=== PATIENT | male | born 1985 | race Caucasian/White ===

== ENCOUNTER → 2022-02-06 11:13 | Outpatient (BNVA) | payer MEDICAID, SELFPAY | PROVIDERS: Visit Provider Nurse Practitioner Family | DX: M17.11 Unilateral primary osteoarthritis, right knee (principal); M25.561 Pain in right knee | CPT/HCPCS: 73560; 73565 ==

== ENCOUNTER → 2022-02-20 10:33 | Outpatient (BNVA) | payer MEDICAID, SELFPAY | PROVIDERS: Visit Provider Nurse Practitioner Family | DX: M25.511 Pain in right shoulder (principal); M25.512 Pain in left shoulder | CPT/HCPCS: 73030 ==

== ENCOUNTER 2022-03-13 10:04 | Outpatient (CLI) | payer MEDICAID, SELFPAY ==
--- NOTE | 2022-03-13 10:23 | XR_ITS ---
WS: [email or web address] Exam: XR wrist RT 2V [id number] Date/Time of Exam: 03/13/2022 10:26 AM Reason For Exam: PAIN IN RIGHT WRIST There are no fractures, soft tissue swelling, or unusual calcifications. The wrist shows normal bony alignment. There is no irregularity of the bony architecture. XR/XR wrist RT [id number] IMPRESSION: Negative right wrist.
--- NOTE | 2022-03-13 10:58 | XR_ITS ---
WS: [email or web address] Exam: XR lumbar spine 2-3V* [id number] Date/Time of Exam: 03/13/2022 11:04 AM Reason For Exam: LOW BACK PAIN No fracture or dislocation. Mild spondylosis involving L3, L4 and L5. Disc spaces are preserved. Post erior elements are intact. Partial sacralization of L5. XR/XR lumbar spine 2-3V* [id number] IMPRESSION: 1. Minimal degenerative change. No fracture or malalignment. 2. Partial sacralization of L5.
--- NOTE | 2022-03-13 10:58 | XR_ITS ---
WS: [email or web address] Exam: XR cervical spine 3V* [id number] Date/Time of Exam: 03/13/2022 11:04 AM Reason For Exam: CERVICALGIA No acute fracture or dislocation. There is straightening and reversal of the normal cervical C curve. Disc spaces are relatively well maintained. The odontoid is intact. Mild facet DJD. XR/XR cervical spine 3V* [id number] IMPRESSION: 1. No acute fracture or malalignment. There is straightening and slight reversa l of the normal cervical lordosis. Minimal DJD.
--- NOTE | 2022-03-13 10:58 | XR_ITS ---
WS: [email or web address] Exam: XR foot LT 2V [id number] Date/Time of Exam: 03/13/2022 11:04 AM Reason For Exam: PAIN No acute fracture or dislocation. No soft tissue foreign bodies are seen. Articular relationships are intact. XR/XR foot LT 2V [id number] IMPRESSION: 1. No fracture or other significant finding.
--- NOTE | 2022-03-13 10:59 | XR_ITS ---
WS: [email or web address] Exam: XR wrist LT 2V [id number] Date/Time of Exam: 03/13/2022 11:04 AM Reason For Exam: PAIN No fracture or dislocation. The radiocarpal joint is relatively well maintained. Normal soft tissues. XR/XR wrist LT 2V [id number] IMPRESSION: 1. Negative left wrist.
--- NOTE | 2022-03-13 10:59 | XR_ITS ---
WS: [email or web address] Exam: XR foot RT 2V [id number] Date/Time of Exam: 03/13/2022 11:04 AM Reason For Exam: PAIN No acute fracture or dislocation. Minimal DJD at the first MP joint. No radiopaque soft tissue foreig n bodies are seen. XR/XR foot RT 2V [id number] IMPRESSION: 1. Minimal DJD. No fracture or other significant finding.
--- NOTE | 2022-03-13 11:00 | XR_ITS ---
WS: [email or web address] Exam: XR knee RT 3V* [id number] Date/Time of Exam: 03/13/2022 11:04 AM Reason For Exam: PAIN Comparison 02/06/2022. Moderately advanced tricompartmental DJD. No acute fracture or dislocation. Probable loose joint bodi es. No joint effusion. Marked spurring of the posterior patella. XR/XR knee RT 3V* [id number] IMPRESSION: 1. Moderately advanced tricompartmental DJD. No fracture or joint effusion. 2. Probable loose joint bodies.
--- NOTE | 2022-03-13 11:00 | XR_ITS ---
WS: [email or web address] Exam: XR knee LT 3V* [id number] Date/Time of Exam: 03/13/2022 11:04 AM Reason For Exam: PAIN Comparison 02/06/2022. Moderate tricompartmental DJD noted. No fracture or dislocation. No joint effusion. Spurring of the p osterior patella. Probable loose joint bodies. XR/XR knee LT 3V* [id number] IMPRESSION: 1. Moderately advanced tricompartmental DJD. No fracture or dislocation.
== END 2022-03-13 10:05 | disposition home or self-care (01) ==
PROVIDERS: Visit Provider Nurse Practitioner Family
DX: M25.531 Pain in right wrist (principal); M54.2 Cervicalgia; R20.0 Anesthesia of skin; M54.50 Low back pain, unspecified; M79.672 Pain in left foot; M79.671 Pain in right foot; M25.561 Pain in right knee; M25.50 Pain in unspecified joint; M17.0 Bilateral primary osteoarthritis of knee; Q76.49 Other congenital malformations of spine, not associated with scoliosis
CPT/HCPCS: 72040; 72100; 73100; 73562; 73620

== ENCOUNTER → 2022-11-13 09:46 | Outpatient (BNVA) | payer MEDICAID, SELFPAY | PROVIDERS: Visit Provider Nurse Practitioner Family | DX: M17.4 Other bilateral secondary osteoarthritis of knee (principal); E66.9 Obesity, unspecified; Z68.43 Body mass index [BMI] 50.0-59.9, adult | CPT/HCPCS: 73560; 73565 ==

== ENCOUNTER 2023-08-31 07:19 | Emergency (ER) | payer MEDICAID, SELFPAY ==
--- NOTE | 2023-08-31 07:33 | XRR_ITS ---
PROCEDURE INFORMATION: Exam: XR Chest Exam date and time: 08/31/2023 8:15 AM Clinical indication: Constipation; Additional info: Abdominal pain TECHNIQUE: Imaging protocol: Radiologic exam of the chest. Views: 1 view. COMPARISON: No relevant prior studies available. FINDINGS: Lungs: Unremarkable. No consolidation. Pleural spaces: Unremarkable. No pleural effusion. No pneumothorax. Heart/Mediastinum: Unremarkable. No cardiomegaly. Bones/joints: Unremarkable. PROCEDURE INFORMATION: Exam: XR Abdomen Exam date and time: 08/31/2023 8:15 AM Age: 38 years old Clinical indication: Constipation; Additional info: Abdominal pain TECHNIQUE: Imaging protocol: Radiologic exam of the abdomen. Views: 2 Views. Upright and supine views. COMPARISON: No relevant prior studies available. FINDINGS: Gastrointestinal tract: Above average fecal loading in the ascending colon. No bowel dilation. Intraperitoneal space: Normal. No free air. Bones/joints: Assimilation left L5-S1 joint. XR/XR acute abdomen series [id number] IMPRESSION: No acute findings. IMPRESSION: Findings suggestive of constipation.
--- NOTE | 2023-08-31 07:33 | W.ED.ABDPA2 ---
HPI - Abdominal Pain General: Chief Complaint: Abdominal Pain Stated Complaint: abd pain Time Seen by Provider: 08/31/23 07:31 History of Present Illness: 38-year-old man with a history of morbid obesity who presents to the emergency room with rectal pain and difficulty defecating. He says he feels like something wants to come out but it will not. He is taken no [id number] medications. No enemas. He had no nausea or vomiting. He said he read online that this could be concerning and he needs to come to the hospital. So he did. Review of Systems Narrative: Constitutional symptoms: Negative except as documented in HPI. Skin symptoms: Negative except as documented in HPI. Eye symptoms: Negative except as documented in HPI. ENMT symptoms: Negative except as documented in HPI. Respiratory symptoms: Negative except as documented in HPI. Cardiovascular symptoms: Negative except as documented in HPI. Gastrointestinal symptoms: Negative except as documented in HPI. Genitourinary symptoms: Negative except as documented in HPI. Musculoskeletal symptoms: Negative except as documented in HPI. Neurologic symptoms: Negative except as documented in HPI. Psychiatric symptoms: Negative except as documented in HPI. Endocrine symptoms: Negative except as documented in HPI. Physical Exam Narrative: EXAM NARRATIVE: General: Alert, no acute distress. Skin: Warm, dry. Head: Normocephalic, atraumatic. Neck: Supple, trachea midline. Eye: Extraocular movements are intact. Ears, nose, mouth and throat: mucosa moist. Cardiovascular: Regular, Normal peripheral perfusion. Respiratory: Lungs are clear to auscultation, respirations are non-labored, breath sounds are equal, Symmetrical chest wall expansion. Gastrointestinal: Soft, Nontender, Non distended, Normal bowel sounds. Musculoskeletal: Normal ROM, no deformity. Neurological: Alert and oriented, No focal neurological deficit observed. Psychiatric: Cooperative, appropriate mood & affect. Course Vital Signs: Vital signs: Vital Signs Temperature 98.3 F 08/31/23 07:34 Pulse Rate 83 08/31/23 08:34 Respiratory Rate 18 08/31/23 07:34 Blood Pressure 139/97 08/31/23 08:34 Pulse Oximetry 96 08/31/23 08:34 Oxygen Delivery Me thod Room Air 08/31/23 08:34 MDM - Abdominal Pain Medical Decision Making Medical decision making: Differential diagnosis including but not limited to and based on the above HPI, review of systems and physical exam: Fecal impaction, constipation. Orders to evaluate differential diagnosis: Basic lab work and an acute abdominal series ordered initially. Lab Review: Laboratory results were reviewed and interpreted by myself the emergency room physician. Acute abdominal series: chest x-ray: No acute process. No obvious infiltrates. No pneumothorax. No cardiomegaly. This was reviewed and interpreted by myself the emergency room physician Abdomen x-ray: Increased stool burden particularly in the ascending colon. Nonspecific bowel gas pattern. No evidence of free air or obstruction. This was reviewed and interpreted by myself the emergency room physician. Reexamination: Patient had what sounded like an extremely painful bowel movement. He says he now feels quite a bit better. No focal abdominal tenderness. No increased work of breathing. No altered mental status. Lab Data 08/31/23 09:15 08/31/23 09:15 Labs/Radiology: Radiology Impressions Chest/Abdomen X-ray 08/31/23 07:33 IMPRESSION: No acute findings. IMPRESSION: Findings suggestive of constipation. Laboratory Results WBC 7.76 10^3/uL (3.29-11.43) 08/31/23 09:15 RBC 4.57 10^6/uL (3.85-5.65) 08/31/23 09:15 Hgb 13.30 g/dL (11.27-16.99) 08/31/23 09:15 Hct 40.7 % (37-53) 08/31/23 09:15 MCV 89.1 fl (82-101) 08/31/23 09:15 MCH 29.1 pg (27-33) 08/31/23 09:15 MCHC 32.7 g/dL (30-55) 08/31/23 09:15 RDW 12.7 % (12.1-15.1) 08/31/23 09:15 Plt Count 194 10^3/cmm (157-399) 08/31/23 09:15 MPV 9.6 fL (7.4-10.4) 08/31/23 09:15 Neut % (Auto) 70.1 % 08/31/23 09:15 Lymph % (Auto) 19.3 % 08/31/23 09:15 [place] % (Auto) 6.3 % 08/31/23 09:15 Eos % (Auto) 3.2 % 08/31/23 09:15 Baso % (Auto) 0.6 % 08/31/23 09:15 Neut # (Auto) 5.43 10^3/uL (1.8-7.7) 08/31/23 09:15 Lymph # (Auto) 1.5 10^3/uL (0.8-4.8) 08/31/23 09:15 [place] # (Auto) 0.5 10^3/uL (0.2-0.9) 08/31/23 09:15 Eos # (Auto) 0.3 10^3/uL (0.0-0.8) 08/31/23 09:15 Baso # (Auto) 0.1 10^3/uL (0.0-0.1) 08/31/23 09:15 Nucleated RBC % (auto) 0 % 08/31/23 09:15 Nucleated RBCs # 0.0 /100WBC 08/31/23 09:15 XR interpretation done by ED provider, pending radiology final review Other Data - Patient had a bowel movement and feels quite a bit better. I will treat him for constipation at home. - Discharged home - Discussed findings and plan with patient. Answered any questions. - All laboratory values were reviewed and interpreted personally by myself, the ER physician - All imaging was reviewed and interpreted personally by myself, the ER physician. - Evaluation and treatment of this problem were appropriate in the emergency setting Discharge Plan Discharge Patient Disposition: Home Clinical Impression: Constipation Condition: Stable Prescriptions: New polyethylene glycol 3350 [Miralax] 17 gram/dose powder 17 g PO DAILY Qty: 510 0RF Rx Instructions: Take 1-2 scoops daily for the next 3 months to keep stools soft magnesium citrate Solution 296 ml PO ONCE Qty: 296 0RF glycerin (adult) Suppository 1 supp [place] DAILY PRN (Reason: constipation) Qty: 12 0RF ondansetron 8 mg tablet,disintegrating 8 mg PO .q6 PRN (Reason: nausea and vomiting) Qty: 14 0RF diclofenac potassium 50 mg tablet 50 mg PO BID PRN (Reason: pain) Qty: 20 0RF Discharge Orders: Discharge ED (Routine); Ordered 08/31/23 Ordered By: Griselda Quiroga Referrals: Primary, provider [Other] (You have been screened and evaluated and felt safe for discharge. Health conditions do change or evolve sometimes and as such it is important that you follow up with your Primary Doctor to be re checked, 3-5 days is a general good time frame for follow up. You are always welcome to return to the ED for re assessment if your symptoms are worsening or you have new concerns) Discharge Diet: Advance as tolerated Discharge Activity: Resume usual activity Patient Instructions: Opioid Safety, Pain Management, Constipation (ED) Coding Level of Care Code ED Manager Call Center for Linn Rai
[2023-08-31 07:34] VITALS: BP 173/117; PULSE 86; RESP 18; TEMP 36.8; O2SAT 98
[2023-08-31] MEDS: ketorolac 60 mg/2 mL INJ IM (08:31)
[2023-08-31] MEDS: ondansetron 2 mg/ML SDV 2 mL 4 MG IVP (08:32)
[2023-08-31 08:34] VITALS: BP 139/97; PULSE 83; O2SAT 96
[2023-08-31 09:22] LABS: Basophils # 0.1 10^3/uL (0.0-0.1); Basophils % 0.6 %; Eosinophils # 0.3 10^3/uL (0.0-0.8); Eosinophils % 3.2 %; Hematocrit 40.7 % (37-53); Lymphocytes # 1.5 10^3/uL (0.8-4.8); Lymphocytes % 19.3 %; Mean Corpuscular HGB Conc 32.7 g/dL (30-55); Mean Corpuscular Hemoglobin 29.1 pg (27-33); Mean Corpuscular Volume 89.1 fl (82-101); Mean Platelet Volume 9.6 fL (7.4-10.4); Monocytes # 0.5 10^3/uL (0.2-0.9); Monocytes % 6.3 %; Neutrophils # 5.43 10^3/uL (1.8-7.7); Neutrophils % 70.1 %; Nucleated Red Blood Cells % 0 %; Platelet Count 194 10^3/cmm (157-399); Red Blood Count 4.57 10^6/uL (3.85-5.65); Red Cell Distribution Width 12.7 % (12.1-15.1); White Blood Count 7.76 10^3/uL (3.29-11.43)
[2023-08-31 09:40] LABS: Anion Gap 12.2 (5-19); Blood Urea Nitrogen 13 mg/dL (6-20); Calcium 8.5 mg/dL (8.5-10.5); Carbon Dioxide 28 mmol/L (22-29); Chloride 102 mmol/L (98-107); Glomerular Filtration Rate 126.2 mL/min (90-130); Glucose 98 mg/dL (65-115); Osmolality Calculated 286 mOsm/kg (285-295); Potassium 4.2 mmol/L (3.5-5.1); Sodium 138 mmol/L (136-145)
[2023-08-31 09:52] VITALS: PULSE 74; O2SAT 92
== END 2023-08-31 09:54 | disposition home or self-care (01) ==
PROVIDERS: Emergency Provider Emergency Medicine
DX: K59.00 Constipation, unspecified (principal)
CPT/HCPCS: 36415; 74022; 80048; 85025; 96372; 96374; 96375; 99284; J1885; J2405

== ENCOUNTER 2023-09-09 11:32 | Emergency (ER) | payer MEDICAID, SELFPAY ==
[2023-09-09] VITALS (9 sets, daily range): BP systolic 138–174; BP diastolic 67–119; PULSE 66–83; TEMP 36.8; O2SAT 90–97; BMI 57.4
--- NOTE | 2023-09-09 11:40 | ECG_ITS ---
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 Measurements Intervals [place] Rate: 66 P: 56 [place]: 177 QRS: 44 QRSD: 113 T: 64 QT: 367 QTc: 386 Interpretive Statements SINUS RHYTHM WITH SINUS ARRHYTHMIA MODERATE INTRAVENTRICULAR CONDUCTION DELAY [110+ ms QRS DURATION] NONSPECIFIC T-WAVE ABNORMALITY No previous ECG available for comparison Electronically Signed On 09-10-2023 0:37:40 TELEVISION ENGINEERING TEACHER by Marianne Santiago M.D. [id number]
--- NOTE | 2023-09-09 11:51 | XR_ITS ---
WS: [email or web address] Exam: XR sternum min 2V [id number] Date/Time of Exam: 09/09/2023 12:01 PM Reason For Exam: trauma No obvious sternal fracture or dislocation. Anterior soft tissues are unremarkable. IMPRESSION: 1. No acute sternal fracture.
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
[2023-09-09 11:57] LABS: Basophils % 0.6 %; Eosinophils # 0.3 10^3/uL (0.0-0.8); Eosinophils % 4.6 %; Hematocrit 40.1 % (37-53); Lymphocytes # 2.2 10^3/uL (0.8-4.8); Lymphocytes % 30.5 %; Mean Corpuscular HGB Conc 33.2 g/dL (30-55); Mean Corpuscular Volume 87.6 fl (82-101); Mean Platelet Volume 9.7 fL (7.4-10.4); Monocytes # 0.5 10^3/uL (0.2-0.9); Monocytes % 6.9 %; Neutrophils # 4.07 10^3/uL (1.8-7.7); Neutrophils % 57.1 %; Nucleated Red Blood Cells % 0 %; Platelet Count 197 10^3/cmm (157-399); Red Blood Count 4.58 10^6/uL (3.85-5.65); Red Cell Distribution Width 12.8 % (12.1-15.1); White Blood Count 7.12 10^3/uL (3.29-11.43)
[2023-09-09 12:14] LABS: Add Urine Microscopic? NO; Charge for UA Resulting for Rev
[2023-09-09 12:22] LABS: Bilirubin Urine Neg (Negative); Blood Urine Neg (Negative); Glucose Urine UA Norm (Normal); Ketones Urine Negative (Negative); Leukocyte Esterase Urine Negative (Negative); Nitrate Urine Negative (Negative); Protein Urine Neg (Negative); Specific Gravity, Urine 1.005 (1.005-1.030); Urine Appearance Clear (CLEAR); Urine Color Yellow (Yellow); Urobilinogen Urine Norm (Negative); pH Urine 5 (5-7)
[2023-09-09 12:27] LABS: Albumin Level 3.9 g/dL (3.5-5.2); Alkaline Phosphatase 97 U/L (40-130); Anion Gap 12.9 (5-19); Aspartate Amino Transferase 37 U/L (0-40); Blood Urea Nitrogen 12 mg/dL (6-20); Calcium 8.7 mg/dL (8.5-10.5); Carbon Dioxide 27 mmol/L (22-29); Chloride 100 mmol/L (98-107); Creatinine Clr Calc Pharmacy 206.0804; Globulin 3.3 g/dL (1.3-4.6); Glomerular Filtration Rate 108.2 mL/min (90-130); Glucose 109 mg/dL (65-115); Lipase 27 U/L (13-60); Osmolality Calculated 282 mOsm/kg (285-295); Potassium 3.9 mmol/L (3.5-5.1); Sodium 136 mmol/L (136-145); Total Bilirubin 0.3 mg/dL (0.15-1.2); Total Protein 7.2 g/dL (6.6-8.7)
[2023-09-09] MEDS: lidocaine 2% viscous 15 ML, aluminum-mag hydrox-simethicon 30 ML, sucralfate oral liq 1 GM PO (12:42)
[2023-09-09] MEDS: sodium chloride 0.9% 1,000 ML 999 ML IV (12:48)
[2023-09-09 12:53] LABS: Alanine Aminotransferase 14 U/L (0-41)
--- NOTE | 2023-09-09 13:55 | CT_ITS ---
WS: [id number] CT ABDOMEN AND PELVIS NONCONTRAST HISTORY: Abdominal pain TECHNIQUE: Imaging performed through the abdomen and pelvis. Coronal and sagittal reformats are submi tted. All CT scans at [facility] use at least one of these dose optimization techniques: auto mated exposure control; mA and/or kV adjustment per patient size (includes targeted exams where dose is matched to clinical indication); or iterative reconstruction. DLP: 1436.93 mGy.cm COMPARISON: None available. Lower thorax: Lung bases are clear. Visualized heart is normal. No hiatal hernia. Liver: Normal size liver. No mass or bile duct dilatation. Gallbladder: Normal gallbladder. No pericholecystic fluid or cholelithiasis. No gallbladder wall thic kening. Pancreas: Normal size and attenuation. Normal pancreatic duct. No pancreatitis or mass. Spleen: Normal. Adrenal glands: Normal. No mass. Right kidney: Normal size kidney with no mass or hydronephrosis. Left kidney: Normal size kidney with no mass or hydronephrosis. Aorta: Normal abdominal aorta, no aneurysm or atherosclerosis. No free fluid, intraperitoneal air or significant lymphadenopathy. GI tract: Normal noncontrast imaging of the stomach, small bowel and colon. No obstruction or wall th ickening. Normal appendix. Abdominal wall: Negative. No hernia. Pelvis: Normal. Osseous structures: Unremarkable. IMPRESSION: 1. Normal noncontrast CT abdomen and pelvis.
== END 2023-09-09 16:14 | disposition home or self-care (01) ==
PROVIDERS: Emergency Provider Family Medicine
DX: R10.11 Right upper quadrant pain (principal)
CPT/HCPCS: 36415; 71120; 74176; 80053; 81003; 83690; 85025; 93005; 99285; J7030

== ENCOUNTER 2023-11-18 16:16 | Emergency (ER) | payer MEDICAID, SELFPAY ==
--- NOTE | 2023-11-18 16:20 | XRR_ITS ---
PROCEDURE INFORMATION: Exam: XR Chest Exam date and time: 11/18/2023 4:43 PM Age: 38 years old Clinical indication: Other: Weakness TECHNIQUE: Imaging protocol: Radiologic exam of the chest. Views: 1 view. COMPARISON: CR XR acute abdomen series [id number] 08/31/2023 8:15 AM FINDINGS: Lungs: Unremarkable. No consolidation. Pleural spaces: Unremarkable. No pleural effusion. No pneumothorax. Heart/Mediastinum: Unremarkable. No cardiomegaly. Bones/joints: Unremarkable. XR/XR chest 1V portable [id number] IMPRESSION: No acute findings.
[2023-11-18 16:26] VITALS: BP 166/94; PULSE 77; RESP 18; TEMP 36.8; O2SAT 97; BMI 55.7
[2023-11-18 16:36] LABS: Basophils % 0.5 %; Eosinophils # 0.2 10^3/uL (0.0-0.8); Eosinophils % 2.6 %; Lymphocytes # 2.1 10^3/uL (0.8-4.8); Lymphocytes % 23.4 %; Mean Corpuscular HGB Conc 33.1 g/dL (30-55); Mean Corpuscular Hemoglobin 29.5 pg (27-33); Mean Corpuscular Volume 89.2 fl (82-101); Mean Platelet Volume 9.8 fL (7.4-10.4); Monocytes # 0.6 10^3/uL (0.2-0.9); Monocytes % 6.3 %; Neutrophils # 5.92 10^3/uL (1.8-7.7); Neutrophils % 66.7 %; Nucleated Red Blood Cells % 0 %; Platelet Count 223 10^3/cmm (157-399); Red Blood Count 4.71 10^6/uL (3.85-5.65); Red Cell Distribution Width 12.5 % (12.1-15.1); White Blood Count 8.87 10^3/uL (3.29-11.43)
--- NOTE | 2023-11-18 16:38 | ED_ITS ---
Documented by User: SANDY Fajardo 11/18/23 17:02 HPI - General Adult 2 General: Chief complaint: Dizziness Stated complaint: weakness, dizzy Time Seen by Provider: 11/18/23 16:31 Source: patient Mode of arrival: ambulatory Limitations: no limitations History of Present Illness: Patient is a 38-year-old male who presents to ED today believing he could be dehydrated. Patient states over the past 2 weeks he has had an improving URI like illness with chest congestion and productive cough. He felt like over the past 24 to 48 hours he was actually improving with this. He states this morning he began noticing dark urine and felt like he had not urinated as much as was normal for him. He states while at lunch today he began feeling woozy headed . Patient states he began drinking water and Gatorade and has since urinated approximately 3-4 times and urine is now more clear. Upon arrival to the emergency department he states I am already feeling better . Denies chest pain. No headache. Hypertensive upon arrival. He states his blood pressure is usually normal at home. Onset (ago): day(s) Severity: mild Exacerbating factors: other (fluids earlier today seemed to help) Associated symptoms: Reports cough; Deny chest pain, headache(s), malaise, nausea, rash, palpitations or vomiting Treatments prior to arrival: other (oral fluids) Review of Systems 2 Const: Denies: fever(s), chills, body aches, fatigue or malaise ENMT: Denies: throat pain, odynophagia, nasal discharge, nasal congestion or sinus pain Card: Reports: swelling of feet/ankles (chronic); Denies: chest pain, palpitations, irregular heart rhythm, orthopnea, leg pain with exertion or acrocyanosis Resp: Reports: productive cough and chest congestion; Denies: wheezing, pain on inspiration or hemoptysis GI: Denies: abdominal pain, nausea, vomiting or diarrhea : Reports: oliguria (noticed earlier today-this has improved with increasing fluid intake); Denies: flank pain, difficulty urinating or hematuria Musc: Denies: neck pain, back pain, extremity pain, extremity swelling or joint pain Skin/Breast: Denies: rash Neuro: Denies: headache(s), numbness in extremities, weakness in extremities or sensory changes Physical Exam 2 Const: COMMON NORMALS: no acute distress, patient oriented x3, no limitations and alert GENERAL APPEARANCE: cooperative NUTRITIONAL APPEARANCE: obese morbidly obese (BMI is over 55) ORIENTATION/CONSCIOUSNESS: Yes awake, Yes oriented to person, Yes oriented to place and Yes oriented to time HENMT: COMMON NORMALS: normocephalic and atraumatic HEAD & SCALP: normal to inspection, normocephalic and atraumatic FACE & SINUS: normal facial exam Chest: COMMONS NORMALS: normal inspection of the chest Resp: COMMON NORMALS: normal respiratory effort and clear to auscultation bilaterally AUSCULTATION: clear to auscultation bilaterally Cardio: COMMON NORMALS: regular rate and regular rhythm RATE: regular rate RHYTHM: regular rhythm GI: COMMON NORMALS: Normal to inspection, nondistended, normoactive bowel sounds present, Soft to palpation and non-tender PALPATION: Yes Soft to palpation : COMMON NORMALS: Yes no CVA tenderness BLADDER/KIDNEY EXAM: Yes no CVA tenderness Back/Pelvis: COMMON NORMALS: no CVA tenderness Neuro: HOLGER COMA SCALE: document GCS findings [place] coma scale eye opening: Spontaneous [place] coma scale verbal response: Orientated [place] coma scale motor response: Obey commands Holger coma scale total score: 15 COMMON NORMALS: patient oriented x3, CN's II-XII intact bilaterally, moves all extremities, no focal motor deficits, no sensory deficits noted and gait normal (patient walked back to his room unassisted w/o difficulty) S ENSORIUM/ORIENTATION: Yes alert, Yes oriented to person, Yes oriented to place and Yes oriented to time SPEECH: speech normal GAIT: Yes Normal gait present MOTOR EXAM: 5/5 motor strength present throughout Skin: COMMON NORMALS: no rashes or lesions noted GENERAL SKIN EXAM: no rashes or lesions noted Course 2 Vital Signs: Vital signs: Vital Signs Temperature 98.3 F 11/18/23 16:26 Pulse Rate 68 11/18/23 17:59 Respiratory Rate 17 11/18/23 17:59 Blood Pressure 171/99 11/18/23 17:59 Pulse Oximetry 97 11/18/23 17:59 Oxygen Delivery Me thod Room Air 11/18/23 16:26 [facility] - General Adult Lab Data 11/18/23 16:31 11/18/23 16:31 Radiology Impressions Chest X-Ray 11/18/23 16:20 IMPRESSION: No acute findings. Laboratory Results WBC 8.87 10^3/uL (3.29-11.43) 11/18/23 16: RBC 4.71 10^6/uL (3.85-5.65) 11/18/23 16:31 Hgb 13.90 g/dL (11.27-16.99) 11/18/23 16:31 Hct 42.0 % (37-53) 11/18/23 16:31 MCV 89.2 fl (82-101) 11/18/23 16:31 MCH 29.5 pg (27-33) 11/18/23 16:31 MCHC 33.1 g/dL (30-55) 11/18/23 16:31 RDW 12.5 % (12.1-15.1) 11/18/23 16:31 Plt Count 223 10^3/cmm (157-399) 11/18/23 16:31 MPV 9.8 fL (7.4-10.4) 11/18/23 16:31 Neut % (Auto) 66.7 % 11/18/23 16:31 Lymph % (Auto) 23.4 % 11/18/23 16:31 [place] % (Auto) 6.3 % 11/18/23 16:31 Eos % (Auto) 2.6 % 11/18/23 16:31 Baso % (Auto) 0.5 % 11/18/23 16:31 Neut # (Auto) 5.92 10^3/uL (1.8-7.7) 11/18/23 16:31 Lymph # (Auto) 2.1 10^3/uL (0.8-4.8) 11/18/23 16:31 [place] # (Auto) 0.6 10^3/uL (0.2-0.9) 11/18/23 16:31 Eos # (Auto) 0.2 10^3/uL (0.0-0.8) 11/18/23 16:31 Baso # (Auto) 0.0 10^3/uL (0.0-0.1) 11/18/23 16:31 Nucleated RBC % (auto) 0 % 11/18/23 16: Nucleated RBCs # 0.0 /100WBC 11/18/23 16:31 Sodium 138 mmol/L (136-145) 11/18/23 16:31 Potassium 3.8 mmol/L (3.5-5.1) 11/18/23 16:31 Chloride 101 mmol/L (98-107) 11/18/23 16:31 Carbon Dioxide 27 mmol/L (22-29) 11/18/23 16:31 Anion Gap 13.8 (5-19) 11/18/23 16:31 BUN 11 mg/dL (6-20) 11/18/23 16:31 Creatinine 0.8 mg/dL (0.7-1.2) 11/18/23 16:31 GFR Calculation 108.2 mL/min (90-130) 11/18/23 16:31 Glucose 107 mg/dL (65-115) 11/18/23 16:31 Calculated Osmolality 286 mOsm/kg (285-295) 11/18/23 16:31 Calcium 9.3 mg/dL (8.5-10.5) 11/18/23 16:31 Total Bilirubin 0.3 mg/dL (0.15-1.2) 11/18/23 16:31 AST 42 U/L (0-40) H 11/18/23 16:31 ALT 21 U/L (0-41) 11/18/23 16:31 Alkaline Phosphatase 104 U/L (40-130) 11/18/23 16:31 Total Protein 7.7 g/dL (6.6-8.7) 11/18/23 16:31 Albumin 4.0 g/dL (3.5-5.2) 11/18/23 16:31 Globulin 3.7 g/dL (1.3-4.6) 11/18/23 16:31 Discharge Plan Discharge Patient Disposition: Home Clinical Impression: Dehydration Condition: Stable Prescriptions: No Action polyethylene glycol 3350 [Miralax] 17 gram/dose powder 17 g PO DAILY Qty: 510 0RF Rx Instructions: Take 1-2 scoops daily for the next 3 months to keep stools soft glycerin (adult) Suppository 1 supp [place] DAILY PRN (Reason: constipation) Qty: 12 0RF ondansetron 8 mg tablet,disintegrating 8 mg PO .q6 PRN (Reason: nausea and vomiting) Qty: 14 0RF diclofenac potassium 50 mg tablet 50 mg PO BID PRN (Reason: pain) Qty: 20 0RF magnesium citrate Solution 296 ml PO ONCE PRN (Reason: Constipation) Discharge Orders: Discharge ED (Routine); Ordered 11/18/23 Ordered By: Yovanny Landers Referrals: Johnie Biggs, CHECKING DEPARTMENT SUPERVISOR [Primary Care Provider] - Discharge Diet: As Directed Discharge Activity: Increase activity as tolerated Patient Instructions: Dehydration (ED) Activity Restrictions/Additional Instructions: Plenty of fluids as instructed. Take your Zofran at home for nausea as needed. Follow-up with primary care and keep log of blood pressures to report. Return to the emergency department if you have any new or concerning symptoms. Sign Out Sign Out Data: Patient Sign Out occurred on 11/18/23 at 17:05. Patient's care was discussed, and care was transferred from SANDY Fajardo to SANDY Doran. Coding Level of Care Code ED Upper Cutter for Chg Fwd Documented by User: SANDY Doran 11/18/23 18:41 HPI - General Adult 2 General: Chief complaint: Dizziness Stated complaint: weakness, dizzy Time Seen by Provider: 11/18/23 16:31 Physical Exam 2 Neuro: HOLGER COMA SCALE: document GCS findings [place] coma scale total score: 15 Course 2 Vital Signs: Vital signs: Vital Signs Temperature 98.3 F 11/18/23 16:26 Pulse Rate 68 11/18/23 17:59 Respiratory Rate 17 11/18/23 17:59 Blood Pressure 171/99 11/18/23 17:59 Pulse Oximetry 97 11/18/23 17:59 Oxygen Delivery Mt thod Room Air 11/18/23 16:26 MDM - General Adult Medical Decision Making Care of patient transferred to co at shift change by SANDY Fajardo. He presented thinking he was dehydrated due to dark appearance of urine and feeling woozy around lunchtime today. On arrival he states he was feeling better after drinking Gatorade, and states he believes he was dehydrated. His EKG was unremarkable. Chest x-ray normal. CBC and CMP both unremarkable. His urinalysis was obtained, however was lost and laboratory, but patient states he is ready to go home and will follow-up with primary care if he starts having urinary symptoms. He does note that he feels 100% after the IV fluids, and has Zofran at home that he will take for any nausea. I did instruct him to keep a log of his blood pressures to report to his primary care, in which she states he is currently being worked up for his obesity which includes evaluation of his thyroid and blood pressure. He states he will do this and if he has any new or concerning signs or symptoms he will return to the emergency department. Patient discharged home. Lab Data I reviewed the patient's lab results. 11/18/23 16:31 11/18/23 16:31 Radiology Impressions Chest X-Ray 11/18/23 16:20 IMPRESSION: No acute findings. Laboratory Results WBC 8.87 10^3/uL (3.29-11.43) 11/18/23 16:31 RBC 4.71 10^6/uL (3.85-5.65) 11/18/23 16:31 Hgb 13.90 g/dL (11.27-16.99) 11/18/23 16:31 Hct 42.0 % (37-53) 11/18/23 16:31 MCV 89.2 fl (82-101) 11/18/23 16:31 MCH 29.5 pg (27-33) 11/18/23 16:31 MCHC 33.1 g/dL (30-55) 11/18/23 16:31 RDW 12.5 % (12.1-15.1) 11/18/23 16:31 Plt Count 223 10^3/cmm (157-399) 11/18/23 16:31 MPV 9.8 fL (7.4-10.4) 11/18/23 16:31 Neut % (Auto) 66.7 % 11/18/23 16:31 Lymph % (Auto) 23.4 % 11/18/23 16:31 [place] % (Auto) 6.3 % 11/18/23 16:31 Eos % (Auto) 2.6 % 11/18/23 16:31 Baso % (Auto) 0.5 % 11/18/23 16:31 Neut # (Auto) 5.92 10^3/uL (1.8-7.7) 11/18/23 16:31 Lymph # (Auto) 2.1 10^3/uL (0.8-4.8) 11/18/23 16:31 [place] # (Auto) 0.6 10^3/uL (0.2-0.9) 11/18/23 16:31 Eos # (Auto) 0.2 10^3/uL (0.0-0.8) 11/18/23 16: Baso # (Auto) 0.0 10^3/uL (0.0-0.1) 11/18/23 16: Nucleated RBC % (auto) 0 % 11/18/23 16: Nucleated RBCs # 0.0 /100WBC 11/18/23 16:31 Sodium 138 mmol/L (136-145) 11/18/23 16:31 Potassium 3.8 mmol/L (3.5-5.1) 11/18/23 16: Chloride 101 mmol/L (98-107) 11/18/23 16: Carbon Dioxide 27 mmol/L (22-29) 11/18/23 16:31 Anion Gap 13.8 (5-19) 11/18/23 16:31 BUN 11 mg/dL (6-20) 11/18/23 16:31 Creatinine 0.8 mg/dL (0.7-1.2) 11/18/23 16:31 GFR Calculation 108.2 mL/min (90-130) 11/18/23 16:31 Glucose 107 mg/dL (65-115) 11/18/23 16: Calculated Osmolality 286 mOsm/kg (285-295) 11/18/23 16:31 Calcium 9.3 mg/dL (8.5-10.5) 11/18/23 16:31 Total Bilirubin 0.3 mg/dL (0.15-1.2) 11/18/23 16:31 AST 42 U/L (0-40) H 11/18/23 16:31 ALT 21 U/L (0-41) 11/18/23 16:31 Alkaline Phosphatase 104 U/L (40-130) 11/18/23 16:31 Total Protein 7.7 g/dL (6.6-8.7) 11/18/23 16:31 Albumin 4.0 g/dL (3.5-5.2) 11/18/23 16:31 Globulin 3.7 g/dL (1.3-4.6) 11/18/23 16:31 All radiology interpretation(s) finalized by discharge Discharge Plan Discharge Patient Disposition: Home Clinical Impression: Dehydration Condition: Stable Prescriptions: No Action polyethylene glycol 3350 [Miralax] 17 gram/dose powder 17 g PO DAILY Qty: 510 0RF Rx Instructions: Take 1-2 scoops daily for the next 3 months to keep stools soft glycerin (adult) Suppository 1 supp [place] DAILY PRN (Reason: constipation) Qty: 12 0RF ondansetron 8 mg tablet,disintegrating 8 mg PO .q6 PRN (Reason: nausea and vomiting) Qty: 14 0RF diclofenac potassium 50 mg tablet 50 mg PO BID PRN (Reason: pain) Qty: 20 0RF magnesium citrate Solution 296 ml PO ONCE PRN (Reason: Constipation) Discharge Orders: Discharge ED (Routine); Ordered 11/18/23 Ordered By: Yovanny Landers Referrals: Johnie Biggs CHECKING DEPARTMENT SUPERVISOR [Primary Care Provider] - Discharge Diet: As Directed Discharge Activity: Increase activity as tolerated Patient Instructions: Dehydration (ED) Activity Restrictions/Additional Instructions: Plenty of fluids as instructed. Take your Zofran at home for nausea as needed. Follow-up with primary care and keep log of blood pressures to report. Return to the emergency department if you have any new or concerning symptoms. Sign Out Sign Out Data: Patient Sign Out occurred on 11/18/23 at 17:05. Patient's care was discussed, and care was transferred from SANDY Fajardo to SANDY Doran. Coding Level of Care Code ED Upper Cutter for Linn Rai
--- NOTE | 2023-11-18 16:40 | ECG_ITS ---
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 Measurements Intervals [place] Rate: 67 P: 65 MO: 190 QRS: 51 QRSD: 109 T: 56 QT: 379 QTc: 401 Interpretive Statements SINUS RHYTHM WITH SINUS ARRHYTHMIA Compared to ECG 09/09/2023 11:40:43 Intraventricular conduction delay no longer present T-wave abnormality no longer present Electronically Signed On 11-18-2023 23:21:33 CDT by Clifford Paul M.D. [id number]
[2023-11-18 16:53] LABS: Alanine Aminotransferase 21 U/L (0-41); Alkaline Phosphatase 104 U/L (40-130); Anion Gap 13.8 (5-19); Aspartate Amino Transferase 42 U/L (0-40); Blood Urea Nitrogen 11 mg/dL (6-20); Calcium 9.3 mg/dL (8.5-10.5); Carbon Dioxide 27 mmol/L (22-29); Chloride 101 mmol/L (98-107); Creatinine Clr Calc Pharmacy 208.5241; Globulin 3.7 g/dL (1.3-4.6); Glomerular Filtration Rate 108.2 mL/min (90-130); Glucose 107 mg/dL (65-115); Osmolality Calculated 286 mOsm/kg (285-295); Potassium 3.8 mmol/L (3.5-5.1); Sodium 138 mmol/L (136-145); Total Bilirubin 0.3 mg/dL (0.15-1.2); Total Protein 7.7 g/dL (6.6-8.7)
[2023-11-18] MEDS: sodium chloride 0.9% 1,000 ML 999 ML IV (17:12)
[2023-11-18 17:59] VITALS: BP 171/99; PULSE 68; RESP 17; O2SAT 97
[2023-11-18 20:04] LABS: Add Urine Microscopic? NO; Charge for UA Resulting for Rev
[2023-11-18 20:07] LABS: Bilirubin Urine Neg (Negative); Blood Urine Neg (Negative); Glucose Urine UA Norm (Normal); Ketones Urine Negative (Negative); Leukocyte Esterase Urine Negative (Negative); Nitrate Urine Negative (Negative); Protein Urine Neg (Negative); Specific Gravity, Urine 1.005 (1.005-1.030); Urine Appearance Clear (CLEAR); Urine Color Light yellow (Yellow); Urobilinogen Urine Norm (Negative); pH Urine 6.5 (5-7)
== END 2023-11-18 18:59 | disposition home or self-care (01) ==
PROVIDERS: Emergency Medicine; Emergency Provider Physician Assistant; PCP Clinical Nurse Specialist Adult Health
DX: E86.0 Dehydration (principal)
CPT/HCPCS: 36415; 71045; 80053; 81003; 85025; 93005; 99285; J7030

== ENCOUNTER → 2023-11-29 08:34 | Outpatient (BNVA) | payer MEDICAID, SELFPAY | PROVIDERS: PCP Family Medicine; Visit Provider Student in an Organized Health Care Education/Training Program | DX: M17.4 Other bilateral secondary osteoarthritis of knee (principal); M17.0 Bilateral primary osteoarthritis of knee | CPT/HCPCS: 73560; 73565 ==

== ENCOUNTER → 2023-12-10 08:39 | Outpatient (BNVA) | payer MEDICAID, SELFPAY | PROVIDERS: PCP Family Medicine; Referring Provider Dermatology; Visit Provider Orthopaedic Surgery | DX: M54.2 Cervicalgia (principal) | CPT/HCPCS: 72050 ==

== ENCOUNTER → 2023-12-17 12:59 | Outpatient (BNVA) | payer MEDICAID, SELFPAY | PROVIDERS: PCP Family Medicine; Visit Provider Orthopaedic Surgery | DX: M54.9 Dorsalgia, unspecified (principal) | CPT/HCPCS: 72110 ==

== ENCOUNTER 2023-12-22 12:53 | Emergency (ER) | payer MEDICAID, SELFPAY ==
--- NOTE | 2023-12-22 12:57 | ECG_ITS ---
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 Measurements Intervals [place] Rate: 75 P: 67 GA: 179 QRS: 42 QRSD: 123 T: 57 QT: 359 QTc: 402 Interpretive Statements SINUS RHYTHM MODERATE INTRAVENTRICULAR CONDUCTION DELAY [110+ ms QRS DURATION] Compared to ECG 11/18/2023 16:40:44 Intraventricular conduction delay now present Sinus arrhythmia no longer present Electronically Signed On 12-22-2023 20:30:07 CDT by Marianne Santiago M.D. [id number]
[2023-12-22 13:01] VITALS: BMI 59.4
--- NOTE | 2023-12-22 13:13 | XRR_ITS ---
PROCEDURE INFORMATION: Exam: XR Chest Exam date and time: 12/22/2023 2:02 PM Age: 38 years old Clinical indication: Pain; Chest pressure; Additional info: Chest pain TECHNIQUE: Imaging protocol: Radiologic exam of the chest. Views: 1 view. COMPARISON: CR XR chest 1V portable [id number] 11/18/2023 4:43 PM FINDINGS: Lungs: Unremarkable. No consolidation or mass. Pleural spaces: Unremarkable. No pleural effusion. No pneumothorax. Heart/Mediastinum: Unremarkable. No cardiomegaly. Bones/joints: Unremarkable. XR/XR chest 1V portable [id number] IMPRESSION: No acute findings.
--- NOTE | 2023-12-22 13:18 | ED_ITS ---
HPI - Chest Pain 2 General: Chief Complaint: Chest Pain Stated Complaint: n/v, abd pain Time Seen by Provider: 12/22/23 13:13 History of Present Illness: 38-year-old male patient comes in today for complaints of feeling of something stuck in his throat. Patient states that at about 12:00 today he was eaten his lunch which consisted of tooth cheese sandwiches. 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 Patient appears nontoxic. Patient reports persistent pressure in his chest and several episodes of emesis of clear fluid after trying to drink some water. Review of Systems 2 General: Reports: 10 or more systems reviewed and unremarkable except in HPI and below PFSH ED 2 PFSH: Medical History Cannabis use disorder Morbid obesity with BMI of 50.0-59.9, adult Neck Pain Degenerative arthritis of knee, bilateral Family History Mother COPD (chronic obstructive pulmonary disease) Social History Smoking and tobacco/nicotine status: former use of tobacco/nicotine Quit status (tobacco/nicotine): has quit using Former quit date comment: 20PY quit 15yrs ago Alcohol intake: current Alcohol intake frequency: 3 or more drinks per day Substance/Drug Use: current Other substance/drug use details: dab wax Adopted: No service: No Current occupational exposures/hazards: No Physical Exam 2 Const: COMMON NORMALS: alert HENMT: COMMON NORMALS: normocephalic HEAD & SCALP: normocephalic Neck/C-Spine: COMMON NORMALS: full ROM Resp: COMMON NORMALS: normal respiratory effort and clear to auscultation bilaterally AUSCULTATION: clear to auscultation bilaterally Cardio: COMMON NORMALS: regular rate RATE: regular rate GI: COMMON NORMALS: Soft to palpation and non-tender PALPATION: Yes Soft to palpation : COMMON NORMALS: Yes no CVA tenderness BLADDER/KIDNEY EXAM: Yes no CVA tenderness Back/Pelvis: COMMON NORMALS: no CVA tenderness Extremity: COMMON NORMALS: normal to inspection Neuro: SENSORIUM/ORIENTATION: Yes alert Skin: COMMON NORMALS: turgor normal GENERAL SKIN EXAM: turgor normal MDM - Chest Pain Medical Decision Making 38-year-old male patient comes in today with some chest discomfort. Patient reports dry heaves and feeling like he is not able to fully swallow down food he had eaten at about 12:00. Patient reports some emesis of food particulate and water. Patient has reported some previous episodes but has been able to swallow it down after repeated attempts in the past. Patient appears nontoxic. Patient takes fluoxetine and occasionally MiraLAX. Patient is morbidly obese. Patient denies any other chronic medical problems. Patient has been a prior tobacco user. Differential diagnosis includes food bolus, esophagitis, pneumonia. 1325, talk with Dr. Pappas, general surgeon on-call, he agreed with plan to try glucagon administration and if that was not to be effective he would plan for a upper endoscopy. 1430, 20 minutes after glucagon administration patient was able to drink 12 ounces of Coca-Cola and was able to hold it down stating some relief in his abdominal discomfort. Patient will be monitored for the next 30 minutes to make sure there is no further regurgitation. 1515, patient had a emesis of clear liquid. Will go ahead and order a CT of the chest to rule out esophageal rupture and add contrast to make sure there is no further obstruction seen. Patient was agreeable to plan. I believe patient most likely has a hiatal hernia versus food bolus at this time and most likely has some esophagitis. 1615, CT noted normal esophagus without any signs of rupture or obstruction. Patient had full passage of dye into the stomach. Believe patient might have some esophagitis versus GERD. Will place him on some pantoprazole and recommend follow-up with surgeon for EGD. Patient reported understanding agreed to plan. Lab Data 12/22/23 13:27 12/22/23 13:27 Radiology Impressions Chest X-Ray 12/22/23 13:13 IMPRESSION: No acute findings. Chest CT 12/22/23 15:13 IMPRESSION: No acute findings. Laboratory Results WBC 11.85 10^3/uL (3.29-11.43) H 12/22/23 13:27 RBC 4.75 10^6/uL (3.85-5.65) 12/22/23 13:27 Hgb 14.30 g/dL (11.27-16.99) 12/22/23 13:27 Hct 43.1 % (37-53) 12/22/23 13:27 MCV 90.7 fl (82-101) 12/22/23 13:27 MCH 30.1 pg (27-33) 12/22/23 13:27 MCHC 33.2 g/dL (30-55) 12/22/23 13:27 RDW 12.5 % (12.1-15.1) 12/22/23 13:27 Plt Count 239 10^3/cmm (157-399) 12/22/23 13:27 MPV 9.2 fL (7.4-10.4) 12/22/23 13:27 Neut % (Auto) 72.5 % 12/22/23 13:27 Lymph % (Auto) 18.9 % 12/22/23 13:27 [place] % (Auto) 6.7 % 12/22/23 13:27 Eos % (Auto) 1.2 % 12/22/23 13:27 Baso % (Auto) 0.3 % 12/22/23 13:27 Neut # (Auto) 8.59 10^3/uL (1.8-7.7) H 12/22/23 13:27 Lymph # (Auto) 2.2 10^3/uL (0.8-4.8) 12/22/23 13:27 [place] # (Auto) 0.8 10^3/uL (0.2-0.9) 12/22/23 13:27 Eos # (Auto) 0.1 10^3/uL (0.0-0.8) 12/22/23 13:27 Baso # (Auto) 0.0 10^3/uL (0.0-0.1) 12/22/23 13:27 Nucleated RBC % (auto) 0 % 12/22/23 13:27 Nucleated RBCs # 0.0 /100WBC 12/22/23 13:27 Sodium 138 mmol/L (136-145) 12/22/23 13:27 Potassium 3.8 mmol/L (3.5-5.1) 12/22/23 13:27 Chloride 101 mmol/L (98-107) 12/22/23 13:27 Carbon Dioxide 26 mmol/L (22-29) 12/22/23 13:27 Anion Gap 14.8 (5-19) 12/22/23 13:27 BUN 14 mg/dL (6-20) 12/22/23 13:27 Creatinine 0.8 mg/dL (0.7-1.2) 12/22/23 13:27 GFR Calculation 108.2 mL/min (90-130) 12/22/23 13:27 Glucose 93 mg/dL (65-115) 12/22/23 13:27 Calculated Osmolality 286 mOsm/kg (285-295) 12/22/23 13:27 Calcium 8.7 mg/dL (8.5-10.5) 12/22/23 13:27 Total Bilirubin 0.3 mg/dL (0.15-1.2) 12/22/23 13:27 AST 33 U/L (0-40) 12/22/23 13:27 ALT 16 U/L (0-41) 12/22/23 13:27 Alkaline Phosphatase 112 U/L (40-130) 12/22/23 13:27 Troponin T Baseline 9 ng/L (0-15) 12/22/23 13:27 Total Protein 6.8 g/dL (6.6-8.7) 12/22/23 13:27 Albumin 3.9 g/dL (3.5-5.2) 12/22/23 13:27 Globulin 2.9 g/dL (1.3-4.6) 12/22/23 13:27 Lipase 65 U/L (13-60) H 12/22/23 13:27 All radiology interpretation(s) finalized by discharge EKG Data EKG 1: I personally reviewed and interpreted this EKG as follows: EKG interpretation date: 12/22/23 EKG interpretation time: 13:05 Prior EKG tracings: not available for review Interpretation: EKG shows a sinus rhythm with a regular rate at [address] elevation or ectopy is observed. No prior exam was available for immediate comparison. Artifact was present on EKG. Computer generated interpretation: Sinus rhythm, 75 bpm, moderate intraventricular conduction delay, compared to EKG 11/18/2023, intraventricular conduction delay now present, sinus arrhythmia no longer present. Discharge Plan Discharge Patient Disposition: Home Clinical Impression: GERD (gastroesophageal reflux disease) Qualifiers: Esophagitis presence: esophagitis presence not specified Qualified Code(s): K 21.9 - Gastro-esophageal reflux disease without esophagitis Swallowing difficulty Qualifiers: Dysphagia type: unspecified Qualified Code(s): R13.10 - Dysphagia, unspecified Condition: Stable Prescriptions: New pantoprazole 40 mg tablet,delayed release (DR/EC) 40 mg PO DAILY 28 Days Qty: 30 0RF No Action fluoxetine 20 mg tablet 20 mg PO DAILY Qty: 60 0RF polyethylene glycol 3350 [Miralax] 17 gram/dose powder 17 g PO DAILY Qty: 510 0RF Rx Instructions: Take 1-2 scoops daily for the next 3 months to keep stools soft Discharge Orders: Discharge ED (Routine); Ordered 12/22/23 Ordered By: Jethro Knowles Referrals: Jim Butt MD [Primary Care Provider] - Discharge Diet: Usual diet Discharge Activity: Increase activity as tolerated Patient Instructions: GERD (Gastroesophageal Reflux Disease) (ED) Activity Restrictions/Additional Instructions: Drink plenty of water and fluids. Take medications as directed. Case management will contact you about follow-up with surgery for esophageal endoscopy for further evaluation. Return to ED for new concerns. Coding Level of Care Code ED Miner Operator for Linn Rai
[2023-12-22 13:31] LABS: Basophils % 0.3 %; Eosinophils # 0.1 10^3/uL (0.0-0.8); Eosinophils % 1.2 %; Hematocrit 43.1 % (37-53); Lymphocytes # 2.2 10^3/uL (0.8-4.8); Lymphocytes % 18.9 %; Mean Corpuscular HGB Conc 33.2 g/dL (30-55); Mean Corpuscular Hemoglobin 30.1 pg (27-33); Mean Corpuscular Volume 90.7 fl (82-101); Mean Platelet Volume 9.2 fL (7.4-10.4); Monocytes # 0.8 10^3/uL (0.2-0.9); Monocytes % 6.7 %; Neutrophils # 8.59 10^3/uL (1.8-7.7); Neutrophils % 72.5 %; Nucleated Red Blood Cells % 0 %; Platelet Count 239 10^3/cmm (157-399); Red Blood Count 4.75 10^6/uL (3.85-5.65); Red Cell Distribution Width 12.5 % (12.1-15.1); White Blood Count 11.85 10^3/uL (3.29-11.43)
[2023-12-22 13:49] LABS: Troponin(5th) Baseline 9 ng/L (0-15)
[2023-12-22 13:55] LABS: Alanine Aminotransferase 16 U/L (0-41); Albumin Level 3.9 g/dL (3.5-5.2); Alkaline Phosphatase 112 U/L (40-130); Anion Gap 14.8 (5-19); Aspartate Amino Transferase 33 U/L (0-40); Blood Urea Nitrogen 14 mg/dL (6-20); Calcium 8.7 mg/dL (8.5-10.5); Carbon Dioxide 26 mmol/L (22-29); Chloride 101 mmol/L (98-107); Creatinine Clr Calc Pharmacy 216.8775; Globulin 2.9 g/dL (1.3-4.6); Glomerular Filtration Rate 108.2 mL/min (90-130); Glucose 93 mg/dL (65-115); Lipase 65 U/L (13-60); Osmolality Calculated 286 mOsm/kg (285-295); Potassium 3.8 mmol/L (3.5-5.1); Sodium 138 mmol/L (136-145); Total Bilirubin 0.3 mg/dL (0.15-1.2); Total Protein 6.8 g/dL (6.6-8.7)
[2023-12-22] MEDS: glucagon 1 mg/mL KIT 1 mL IVP (14:04)
--- NOTE | 2023-12-22 14:28 | PC.NURSE ---
Per Jethro Knowles NP, I gave the patient 2 small cans of warm coca-cola and told him to chug it. Patient drank the coca-cola and said that he feels like the feeling he had in his throat where something was stuck it is gone.
--- NOTE | 2023-12-22 15:13 | CTR_ITS ---
PROCEDURE INFORMATION: Exam: CT Chest Without Contrast; Diagnostic Exam date and time: 12/22/2023 3:44 PM Age: 38 years old Clinical indication: Other: R/O esophageal rupture, with oral contrast TECHNIQUE: Imaging protocol: Diagnostic computed tomography of the chest without contrast. Radiation optimization: All CT scans at this facility use at least one of these dose optimization techniques: automated exposure control; mA and/or kV adjustment per patient size (includes targeted exams where dose is matched to clinical indication); or iterative reconstruction. COMPARISON: CR (CHEST, ) 12/22/2023 2:02 PM RADIATION DOSE METRICS: Total DLP (mGy-cm): 892.16 FINDINGS: Lungs: Unremarkable. No consolidation. No masses. Pleural spaces: Unremarkable. No pneumothorax. No pleural effusion. Heart: Unremarkable. No cardiomegaly. No pericardial effusion.There is no evidence of coronary artery calcifications. Esophagus: The esophagus demonstrates no abnormality. There is no evidence of contrast leakage or air within the mediastinum. Lymph nodes: Unremarkable. No enlarged lymph nodes. Vasculature: Unremarkable. No aortic aneurysm. Bones/joints: Unremarkable. No acute fracture. Soft tissues: Unremarkable. CT/CT chest wo con [id number] IMPRESSION: No acute findings.
[2023-12-22] MEDS: iohexol 350 mg/mL 500 mL Btl (per mL) PO (15:51)
[2023-12-22] MEDS: lidocaine 2% viscous 15 ML, aluminum-mag hydrox-simethicon 30 ML, sucralfate oral liq 1 GM PO (16:10)
--- NOTE | 2023-12-22 16:18 | DCPLANNER ---
Sent a follow up request to surgery 12/22/23 @9230
[2023-12-22] MEDS: pantoprazole 40 mg SDV IVP (16:20)
== END 2023-12-22 16:31 | disposition home or self-care (01) ==
PROVIDERS: Emergency Provider Nurse Practitioner Family; PCP Family Medicine
DX: R13.10 Dysphagia, unspecified (principal); K21.9 Gastro-esophageal reflux disease without esophagitis; Z87.891 Personal history of nicotine dependence
CPT/HCPCS: 36415; 71045; 71250; 80053; 83690; 84484; 85025; 93005; 96374; 96375; 99285; C9113; J1610; Q9967

== ENCOUNTER 2023-12-28 18:42 | Observation (INO) | payer MEDICAID, SELFPAY ==
[2023-12-28 18:51] VITALS: BP 190/102; PULSE 76; RESP 17; TEMP 36.7; O2SAT 96; BMI 59.4
--- NOTE | 2023-12-28 19:27 | ED_ITS ---
HPI - Abdominal Pain 2 General: Chief Complaint: Abdominal Pain Stated Complaint: Stomach pain Time Seen by Provider: 12/28/23 19:10 History of Present Illness: 38-year-old male who was seen last week with a possible food bolus in his esophagus. It was not found on investigation, and the patient was tolerating liquids so was allowed discharge. He continues to have epigastric discomfort. He is also having what he describes as coffee-ground stools, sometimes with a greasy yellow substance. He notes that his stools been black all week. He has had continued pain in his chest when trying to swallow food. He says that he has been coughing and hacking up phlegm, especially with trying to swallow liquids. He has not had a fever. Today, he had a loose stool. Associated Symptoms: Reports diarrhea, nausea and vomiting; Denies fever(s) Review of Systems 2 Const: Denies: fever(s) Eyes: Denies: change in vision ENMT: Reports: throat pain Card: Reports: chest pain; Denies: palpitations Resp: Reports: productive cough; Denies: dyspnea GI: Reports: abdominal pain, nausea, vomiting and diarrhea PFSH ED 2 PFSH: Medical History Cannabis use disorder Morbid obesity with BMI of 50.0-59.9, adult Neck Pain Degenerative arthritis of knee, bilateral Family History Mother COPD (chronic obstructive pulmonary disease) Social History Smoking and tobacco/nicotine status: former use of tobacco/nicotine Quit status (tobacco/nicotine): has quit using Former quit date comment: 20PY quit 15yrs ago Alcohol intake: current Alcohol intake frequency: 3 or more drinks per day Substance/Drug Use: current Other substance/drug use details: dab wax Adopted: No service: No Current occupational exposures/hazards: No Physical Exam 2 Const: COMMON NORMALS: no acute distress GENERAL APPEARANCE: cooperative; not ill appearing and not frail appearing HENMT: COMMON NORMALS: normocephalic, atraumatic and Normal external nose present HEAD & SCALP: normocephalic and atraumatic FACE & SINUS: normal facial exam and face symmetric NOSE: Normal external nose present Eye: COMMON NORMALS: Equal, round and reactive pupils present and EOMs intact bilaterally PUPIL: Yes Equal, round and reactive pupils present Neck/C-Spine: GENERAL: Yes trachea midline Chest: CHEST: Yes Symmetrical chest wall rise Resp: COMMON NORMALS: normal respiratory effort, No retractions, No use of accessory muscles and clear to auscultation bilaterally AUSCULTATION: clear to auscultation bilaterally Cardio: COMMON NORMALS: regular rate and regular rhythm RATE: regular rate RHYTHM: regular rhythm GI: COMMON NORMALS: Normal to inspection, nondistended, normoactive bowel sounds present PALPATION: Yes Tenderness to palpation present (GI) (Epigastric) Extremity: COMMON NORMALS: no pedal edema Neuro: HOLGER COMA SCALE: document GCS findings [place] coma scale eye opening: Spontaneous Holger coma scale verbal response: Orientated [place] coma scale motor response: Obey commands Holger coma scale total score: 15 S ENSORY EXAM: Yes extremities (intact) Psych: COMMON NORMALS: speech normal SPEECH: Yes normal speech Skin: COMMON NORMALS: no rashes or lesions noted GENERAL SKIN EXAM: no rashes or lesions noted Course 2 Vital Signs: Vital signs: Vital Signs Temperature 97.6 F 12/28/23 22:50 Pulse Rate 97 12/28/23 22:50 Respiratory Rate 16 12/28/23 22:50 Blood Pressure 156/101 12/28/23 22:50 Pulse Oximetry 97 12/28/23 22:50 Oxygen Delivery Me thod Room Air 12/28/23 23:13 MDM - Abdominal Pain Medical Decision Making 38-year-old male with continued symptoms following potential food bolus to the esophagus last week. He is tolerating liquids, barely. He is not tolerating solid food. Laboratory is not remarkable. Chest x-ray is impression is read as barium in the esophagus stomach duodenum and proximal jejunum. It appears to me there may be a partial obstruction in the esophagus. I discussed with surgery. He is willing to observe the patient, potentially take for EGD in the morning. Holdover orders been written. The patient is otherwise stable. He will be made n.p.o. after midnight. Lab Data 12/28/23 20:43 12/28/23 20:43 Labs/Radiology: Radiology Impressions Chest X-Ray 12/28/23 19:39 IMPRESSION: Barium in the esophagus stomach, C-loop of the duodenum and proximal jejunum. Laboratory Results WBC 10.31 10^3/uL (3.29-11.43) 12/28/23 20:43 RBC 4.58 10^6/uL (3.85-5.65) 12/28/23 20:43 Hgb 13.70 g/dL (11.27-16.99) 12/28/23 20:43 Hct 40.5 % (37-53) 12/28/23 20:43 MCV 88.4 fl (82-101) 12/28/23 20:43 MCH 29.9 pg (27-33) 12/28/23 20:43 MCHC 33.8 g/dL (30-55) 12/28/23 20:43 RDW 12.4 % (12.1-15.1) 12/28/23 20:43 Plt Count 221 10^3/cmm (157-399) 12/28/23 20:43 MPV 9.7 fL (7.4-10.4) 12/28/23 20:43 Neut % (Auto) 68.1 % 12/28/23 20:43 Lymph % (Auto) 24.2 % 12/28/23 20:43 [place] % (Auto) 6.2 % 12/28/23 20:43 Eos % (Auto) 0.7 % 12/28/23 20:43 Baso % (Auto) 0.4 % 12/28/23 20:43 Neut # (Auto) 7.02 10^3/uL (1.8-7.7) 12/28/23 20:43 Lymph # (Auto) 2.5 10^3/uL (0.8-4.8) 12/28/23 20:43 [place] # (Auto) 0.6 10^3/uL (0.2-0.9) 12/28/23 20:43 Eos # (Auto) 0.1 10^3/uL (0.0-0.8) 12/28/23 20:43 Baso # (Auto) 0.0 10^3/uL (0.0-0.1) 12/28/23 20:43 Nucleated RBC % (auto) 0 % 12/28/23 20:43 Nucleated RBCs # 0.0 /100WBC 12/28/23 20:43 Sodium 136 mmol/L (136-145) 12/28/23 20:43 Potassium 3.4 mmol/L (3.5-5.1) L 12/28/23 20:43 Chloride 102 mmol/L (98-107) 12/28/23 20:43 Carbon Dioxide 24 mmol/L (22-29) 12/28/23 20:43 Anion Gap 13.4 (5-19) 12/28/23 20:43 BUN 8 mg/dL (6-20) 12/28/23 20:43 Creatinine 0.9 mg/dL (0.7-1.2) 12/28/23 20:43 GFR Calculation 94.4 mL/min (90-130) 12/28/23 20:43 Glucose 109 mg/dL (65-115) 12/28/23 20:43 Calculated Osmolality 281 mOsm/kg (285-295) L 12/28/23 20:43 Calcium 8.8 mg/dL (8.5-10.5) 12/28/23 20:43 Total Bilirubin 0.5 mg/dL (0.15-1.2) 12/28/23 20:43 AST 35 U/L (0-40) 12/28/23 20:43 ALT 21 U/L (0-41) 12/28/23 20:43 Alkaline Phosphatase 115 U/L (40-130) 12/28/23 20:43 C-Reactive Protein 29.7 mg/L (0.0-4.9) H 12/28/23 20:43 Total Protein 7.1 g/dL (6.6-8.7) 12/28/23 20:43 Albumin 3.9 g/dL (3.5-5.2) 12/28/23 20:43 Globulin 3.2 g/dL (1.3-4.6) 12/28/23 20:43 Lipase 34 U/L (13-60) 12/28/23 20:43 Urine Color Yellow (Yellow) 12/28/23 20:49 Urine Appearance Clear (CLEAR) 12/28/23 20:49 Urine pH 5 (5-7) 12/28/23 20:49 Ur Specific [place] 1.020 (1.005-1.030) 12/28/23 20:49 Urine Protein Neg (Negative) 12/28/23 20:49 Urine Glucose (UA) Norm (Normal) 12/28/23 20:49 Urine Ketones Negative (Negative) 12/28/23 20:49 Urine Blood Neg (Negative) 12/28/23 20:49 Urine Nitrate Negative (Negative) 12/28/23 20:49 Urine Bilirubin 1+ (Negative) H 12/28/23 20:49 Urine Urobilinogen 1 mg/dL (Negative) H 12/28/23 20:49 Ur Leukocyte Esterase Negative (Negative) 12/28/23 20:49 All radiology interpretation(s) finalized by discharge Discharge Plan Discharge Patient Disposition: Placed in Observation Admit Provider: Adam Lazo Clinical Impression: Esophagitis, Esophageal obstruction Condition: Stable Coding Level of Care Code ED Radiologic Electronic Specialist for Linn Rai
--- NOTE | 2023-12-28 19:39 | XRR_ITS ---
PROCEDURE INFORMATION: Exam: XR Chest Exam date and time: 12/28/2023 8:08 PM Age: 38 years old Clinical indication: Chest pressure and sternal or substernal pain; Patient HX: Food bolus-mid chest; PT given intermittent barium (75ml total) and images to follow per Dr. Landon TECHNIQUE: Imaging protocol: Radiologic exam of the chest. Views: 2 views. COMPARISON: [facility] chest [facility] [id number] 12/22/2023 3:44 PM FINDINGS: Lungs: Unremarkable. No consolidation. Pleural spaces: Unremarkable. No pleural effusion. No pneumothorax. Heart/Mediastinum: Unremarkable. No cardiomegaly. Bones/joints: Unremarkable. Gastrointestinal tract: Barium in the esophagus stomach, C-loop of the duodenum and proximal jejunum. XR/XR chest 2V* [id number] IMPRESSION: Barium in the esophagus stomach, C-loop of the duodenum and proximal jejunum.
[2023-12-28] MEDS: lidocaine 2% viscous 15 ML, aluminum-mag hydrox-simethicon 30 ML, sucralfate oral liq 1 GM PO (20:01)
[2023-12-28 20:54] LABS: Basophils % 0.4 %; Eosinophils # 0.1 10^3/uL (0.0-0.8); Eosinophils % 0.7 %; Hematocrit 40.5 % (37-53); Lymphocytes # 2.5 10^3/uL (0.8-4.8); Lymphocytes % 24.2 %; Mean Corpuscular HGB Conc 33.8 g/dL (30-55); Mean Corpuscular Hemoglobin 29.9 pg (27-33); Mean Corpuscular Volume 88.4 fl (82-101); Mean Platelet Volume 9.7 fL (7.4-10.4); Monocytes # 0.6 10^3/uL (0.2-0.9); Monocytes % 6.2 %; Neutrophils # 7.02 10^3/uL (1.8-7.7); Neutrophils % 68.1 %; Nucleated Red Blood Cells % 0 %; Platelet Count 221 10^3/cmm (157-399); Red Blood Count 4.58 10^6/uL (3.85-5.65); Red Cell Distribution Width 12.4 % (12.1-15.1); White Blood Count 10.31 10^3/uL (3.29-11.43)
[2023-12-28 20:55] LABS: Add Urine Microscopic? NO; Charge for UA Resulting for Rev
[2023-12-28 21:02] LABS: Bilirubin Urine 1+ (Negative); Blood Urine Neg (Negative); Glucose Urine UA Norm (Normal); Ketones Urine Negative (Negative); Leukocyte Esterase Urine Negative (Negative); Nitrate Urine Negative (Negative); Protein Urine Neg (Negative); Urine Appearance Clear (CLEAR); Urine Color Yellow (Yellow); Urobilinogen Urine 1 mg/dL (Negative); pH Urine 5 (5-7)
[2023-12-28 21:15] LABS: Alanine Aminotransferase 21 U/L (0-41); Albumin Level 3.9 g/dL (3.5-5.2); Alkaline Phosphatase 115 U/L (40-130); Anion Gap 13.4 (5-19); Aspartate Amino Transferase 35 U/L (0-40); Blood Urea Nitrogen 8 mg/dL (6-20); C Reactive Protein 29.7 mg/L (0.0-4.9); Calcium 8.8 mg/dL (8.5-10.5); Carbon Dioxide 24 mmol/L (22-29); Chloride 102 mmol/L (98-107); Globulin 3.2 g/dL (1.3-4.6); Glomerular Filtration Rate 94.4 mL/min (90-130); Glucose 109 mg/dL (65-115); Lipase 34 U/L (13-60); Osmolality Calculated 281 mOsm/kg (285-295); Potassium 3.4 mmol/L (3.5-5.1); Sodium 136 mmol/L (136-145); Total Bilirubin 0.5 mg/dL (0.15-1.2); Total Protein 7.1 g/dL (6.6-8.7)
[2023-12-28 21:51] VITALS: BP 159/102; PULSE 68; RESP 16; O2SAT 94
[2023-12-28 22:50] VITALS: BP 156/101; PULSE 97; RESP 16; TEMP 36.4; O2SAT 97
[2023-12-29] MEDS: lactated ringers 1,000 ML 100 ML IV (00:36)
[2023-12-29 01:23] VITALS: BP 148/98; PULSE 70; RESP 16; TEMP 36.6; O2SAT 97
[2023-12-29 04:00] VITALS: BP 147/88; PULSE 70; RESP 18; TEMP 36.4; O2SAT 97
[2023-12-29 06:34] VITALS: BMI 59.4
[2023-12-29 08:07] VITALS: BP 158/92; PULSE 91; RESP 18; TEMP 36.5; O2SAT 96
--- NOTE | 2023-12-29 09:38 | PC.NURSE ---
This RN was alerted to patient wanting to leave AMA, Tri SHEPARD and I went into patients room to explain risks and benefits of leaving AMA, and to remove patients IV. While explaining risks/benefits patient began yelling at staff that we lied to him and that his procedure was supposed to be first thing this morning. I attempted to apologize to the patient for the breakdown in communication since Dr. Lazo would not be in until after noon today. Patient refused to sign AMA form stating that we will be held liable if anything does happen to him, because it was our fault for the delay in his care. I tried to explain to the patient that it does not work that way, however he continued to yell over me. Directed Kelly US to call security. Patient walked of unit prior to security arriving to the floor. Patient later called the floor asking to speak to this RN. Patient continued to rant about being lied to and demand that he has his procedure done Saturday. I explained to the patient that I have no control over outpatient procedures or scheduling. Directed patient to come back to the ER if he has continued symptoms.
--- NOTE | 2023-12-29 10:10 | PC.NURSE ---
Upon entering room this am for rounding this patient stated his procedure was suppose to be first thing this am. This nurse stated would find out the time as soon as possible and them them know. This patient was getting a little loud stating it was our fault his procedure was not scheduled as an out patient this past week. This nurse appologized to the patient and the floor has no control over scheduling outpatient appointments. Patient was okay with this nurse finding out when procedure was going to be scheduled. Patient then asked when the physician would be in. This nurse stated it was Saturday and not really sure.
--- NOTE | 2023-12-29 10:21 | PC.NURSE ---
Upon entering the room for 0900 rounding the patients [age] year old daughter was up in the bed with patient snuggled under the covers with head on patients arm/chest rubbing patients stomach. This nurse stated to patient it was time for rounds and was checking to see if patient needed anything. Also told patient it was hospital policy the daughter could not be in the bed. The beds were made for single patient use. Before this nurse could explain the weight limit and if something were to happen, the patient flung the covers off and stated he has had enough of this shit and was leaving. All he was doing was cuddling his daughter. Daughter stated her dad wanted her to cuddle him as she buries her head more in the patients arm pit. This nurse ask the patient to please wait and the charge nurse would be in. The patient continued to mouth this procedure was suppose to be scheduled for this past week and the procedure was suppose to be done first thing this am and he hadn't had anything to eat in a week and he is getting stressed out now. This nurse apologized to the patient once again and proceeded to get the charge nurse. Standing outside of the door when Martha RN went in and heard her tell the patient that the procedure would not be until the afternoon due to it being Saturday and the surgeon usually goes to [facility]. The patient started yelling at Martha that he was supposed to have the procedure last week, but we failed to schedule it and he had to come back in for the pain. Martha tried to calm the patient down, but the patient said he was leaving. Dr. Lazo notified after patient signed ama paperwork.
[2023-12-29 11:46] VITALS: BP 158/92; PULSE 91; RESP 18; TEMP 36.5; O2SAT 96
== END 2023-12-29 09:35 | disposition left against medical advice (07) ==
LOC: ER 19:29 → MEDSURG 22:17
PROVIDERS: Admitting Provider Surgery; Emergency Provider Emergency Medicine; PCP Family Medicine; Visit Provider Surgery
DX: K22.2 Esophageal obstruction (principal); E66.01 Morbid (severe) obesity due to excess calories; Z68.43 Body mass index [BMI] 50.0-59.9, adult; Z87.891 Personal history of nicotine dependence; Z53.29 Procedure and treatment not carried out because of patient's decision for other reasons
CPT/HCPCS: 36415; 71046; 80053; 81003; 83690; 85025; 86140; 96360; 96361; 99285; G0378; J7120

== ENCOUNTER 2024-01-02 10:55 | Day surgery (SDC) | payer MEDICAID, SELFPAY ==
[2024-01-02 11:14] VITALS: BP 161/105; PULSE 87; RESP 18; TEMP 36.6; O2SAT 97
--- NOTE | 2024-01-02 11:29 | P.HPUD_ITS ---
Surgery/Procedure H&P Update DATE OF PROCEDURE: January 02, 2024 DATE H&P PERFORMED: 01/01/24 H&P UPDATE INFORMATION: I have reviewed H&P completed within last 30 days, I have examined patient prior to procedure, No changes to prior documentation and H&P is in [facility] EMR on date indicated PLANNED PROCEDURE: Operation Date: 01/02/24 12:05 Proposed Procedures p EGD Dilation W/ Balloon 56036, R13.10(Not Applicable) - Yovanny Pappas MD
[2024-01-02] MEDS: sodium chloride 0.9% 1,000 ML 30 ML IV (11:32)
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
[2024-01-02 13:12] VITALS: BP 129/78; PULSE 74; RESP 12; TEMP 36.8; O2SAT 95
[2024-01-02 13:20] VITALS: BP 127/83; PULSE 84; RESP 16; O2SAT 95
[2024-01-02 13:32] VITALS: BP 131/94; PULSE 84; RESP 16; O2SAT 97
== END 2024-01-02 14:01 | disposition home or self-care (01) ==
PROVIDERS: PCP Family Medicine; Visit Provider Surgery
DX: R13.10 Dysphagia, unspecified (principal); K29.50 Unspecified chronic gastritis without bleeding; G47.30 Sleep apnea, unspecified; I10 Essential (primary) hypertension; K21.9 Gastro-esophageal reflux disease without esophagitis; Z87.11 Personal history of peptic ulcer disease; E66.01 Morbid (severe) obesity due to excess calories; Z68.43 Body mass index [BMI] 50.0-59.9, adult
CPT/HCPCS: 43239; 88305; 88342; J2704; J3490; J7030

== ENCOUNTER 2024-01-04 22:57 | Emergency (ER) | payer MEDICAID, SELFPAY ==
--- NOTE | 2024-01-04 23:01 | ECG_ITS ---
[facility] Test Date: 2024-01-04 Pat Name: Graeme Sadler Department: Room: Gender: Male Basket Patcher: : 1985 Requested By: Charles Pyle Order Number: [id number] German MD: Derrell Boss M.D. Measurements Intervals [place] Rate: 89 P: 57 [place]: 184 QRS: 29 QRSD: 111 T: 53 QT: 336 QTc: 410 Interpretive Statements SINUS RHYTHM MODERATE INTRAVENTRICULAR CONDUCTION DELAY [110+ ms QRS DURATION] NONSPECIFIC T-WAVE ABNORMALITY Compared to ECG 12/22/2023 12:57:01 T-wave abnormality now present Electronically Signed On 01-05-2024 9:56:40 CDT by Derrell Boss M.D. [id number]
[2024-01-04 23:09] VITALS: BP 158/105; PULSE 88; RESP 16; TEMP 37.2; O2SAT 95; BMI 57.2
--- NOTE | 2024-01-04 23:47 | XRR_ITS ---
PROCEDURE INFORMATION: Exam: XR Chest Exam date and time: 01/04/2024 11:50 PM Age: 38 years old Clinical indication: Chest pressure; Patient HX: C/O chest pain TECHNIQUE: Imaging protocol: Radiologic exam of the chest. Views: 1 view. COMPARISON: CR XR chest 2V* [id number] 12/28/2023 8:08 PM FINDINGS: Lungs: The lungs are clear. No pulmonary consolidation. Pleural spaces: No pleural effusion or pneumothorax. Heart/Mediastinum: The heart is magnified. The cardiomediastinal silhouette is grossly within normal limits. Bones/joints: No acute osseous abnormalities are seen. XR/XR chest 1V portable [id number] IMPRESSION: No acute cardiopulmonary disease.
[2024-01-05 00:09] VITALS: BP 143/88; PULSE 79; RESP 17; O2SAT 93
[2024-01-05] MEDS: lidocaine 2% viscous 15 ML, aluminum-mag hydrox-simethicon 30 ML, sucralfate oral liq 1 GM PO (00:11)
[2024-01-05 00:41] LABS: Troponin(5th) Baseline 9 ng/L (0-15)
[2024-01-05 00:43] LABS: Blood Urea Nitrogen 11 mg/dL (6-20); Calcium 9.1 mg/dL (8.5-10.5); Carbon Dioxide 24 mmol/L (22-29); Chloride 104 mmol/L (98-107); Creatinine Clr Calc Pharmacy 188.2108; Glomerular Filtration Rate 94.4 mL/min (90-130); Glucose 98 mg/dL (65-115); Osmolality Calculated 289 mOsm/kg (285-295); Sodium 140 mmol/L (136-145)
[2024-01-05 00:44] VITALS: BP 146/78; PULSE 73; RESP 17; O2SAT 94
[2024-01-05 00:52] LABS: Basophils % 0.4 %; Eosinophils # 0.1 10^3/uL (0.0-0.8); Eosinophils % 0.7 %; Hematocrit 40.7 % (37-53); Lymphocytes # 2.1 10^3/uL (0.8-4.8); Mean Corpuscular HGB Conc 33.7 g/dL (30-55); Mean Corpuscular Hemoglobin 29.7 pg (27-33); Mean Corpuscular Volume 88.1 fl (82-101); Mean Platelet Volume 10.1 fL (7.4-10.4); Monocytes # 0.6 10^3/uL (0.2-0.9); Monocytes % 6.3 %; Neutrophils % 69.3 %; Nucleated Red Blood Cells % 0 %; Platelet Count 241 10^3/cmm (157-399); Red Blood Count 4.62 10^6/uL (3.85-5.65); Red Cell Distribution Width 12.4 % (12.1-15.1); White Blood Count 9.09 10^3/uL (3.29-11.43)
[2024-01-05 01:00] VITALS: BP 148/78; PULSE 83; RESP 17; O2SAT 94
--- NOTE | 2024-01-05 03:10 | ED_ITS ---
HPI - Chest Pain 2 General: Chief Complaint: Chest Pain Stated Complaint: Sob chest pressure in middle Time Seen by Provider: 01/04/24 23:19 History of Present Illness: 38-year-old male seen last week for epig astric discomfort, and dysphagia. He had EGD performed showing gastritis. He presents this evening after drinking 1.5 years while out with friends. He notes he began to get a burning and pressure sensation in his chest with some shortness of breath. He notes that since being here, it is improved significantly. No fever. Associated symptoms: Reports abdominal pain, dyspnea and nausea; Deny fever(s), palpitations or vomiting Review of Systems 2 Const: Denies: fever(s), chills or body aches Eyes: Denies: change in vision Card: Reports: chest pain; Denies: palpitations Resp: Reports: dyspnea; Denies: productive cough, non-productive cough or wheezing GI: Reports: abdominal pain and nausea; Denies: vomiting, diarrhea or hematochezia Skin/Breast: Denies: rash Neuro: Denies: headache(s), weakness in extremities, dizziness or confusion PFSH ED 2 PFSH: Medical History Cannabis use disorder Morbid obesity with BMI of 50.0-59.9, adult Neck Pain Degenerative arthritis of knee, bilateral Family History Mother COPD (chronic obstructive pulmonary disease) Tumor Social History Smoking and tobacco/nicotine status: current every day tobacco/nicotine user Quit status (tobacco/nicotine): has quit using Former quit date comment: 20PY quit 15yrs ago Alcohol intake: current Alcohol intake frequency: 3 or more drinks per day Substance/Drug Use: current Other substance/drug use details: dab wax Adopted: No service: No Current occupational exposures/hazards: No Course 2 Vital Signs: Vital signs: Vital Signs Temperature 99.0 F 01/04/24 23:09 Pulse Rate 83 01/05/24 01:00 Respiratory Rate 17 01/05/24 01:00 Blood Pressure 148/78 01/05/24 01:00 Pulse Oximetry 94 01/05/24 01:00 Oxygen Delivery Me thod Room Air 01/05/24 01:00 MDM - Chest Pain Medical Decision Making No prior history of coronary disease. Vitals are nonremarkable. CBC BMP are not remarkable. Chest x-ray is negative. His troponin is 9. EKG is normal. He has had some improvement after GI cocktail. Will allow home. He will continue his GI medications. Lab Data 01/05/24 00:06 01/05/24 00:06 Radiology Impressions Chest X-Ray 01/04/24 23:47 IMPRESSION: No acute cardiopulmonary disease. Laboratory Results WBC 9.09 10^3/uL (3.29-11.43) 01/05/24 00:06 RBC 4.62 10^6/uL (3.85-5.65) 01/05/24 00:06 Hgb 13.70 g/dL (11.27-16.99) 01/05/24 00:06 Hct 40.7 % (37-53) 01/05/24 00:06 MCV 88.1 fl (82-101) 01/05/24 00:06 MCH 29.7 pg (27-33) 01/05/24 00:06 MCHC 33.7 g/dL (30-55) 01/05/24 00:06 RDW 12.4 % (12.1-15.1) 01/05/24 00:06 Plt Count 241 10^3/cmm (157-399) 01/05/24 00:06 MPV 10.1 fL (7.4-10.4) 01/05/24 00:06 Neut % (Auto) 69.3 % 01/05/24 00:06 Lymph % (Auto) 23.0 % 01/05/24 00:06 Sac % (Auto) 6.3 % 01/05/24 00:06 Eos % (Auto) 0.7 % 01/05/24 00:06 Baso % (Auto) 0.4 % 01/05/24 00:06 Neut # (Auto) 6.30 10^3/uL (1.8-7.7) 01/05/24 00:06 Lymph # (Auto) 2.1 10^3/uL (0.8-4.8) 01/05/24 00:06 Sac # (Auto) 0.6 10^3/uL (0.2-0.9) 01/05/24 00:06 Eos # (Auto) 0.1 10^3/uL (0.0-0.8) 01/05/24 00:06 Baso # (Auto) 0.0 10^3/uL (0.0-0.1) 01/05/24 00:06 Nucleated RBC % (auto) 0 % 01/05/24 00:06 Nucleated RBCs # 0.0 /100WBC 01/05/24 00:06 Sodium 140 mmol/L (136-145) 01/05/24 00:06 Potassium 4.0 mmol/L (3.5-5.1) 01/05/24 00:06 Chloride 104 mmol/L (98-107) 01/05/24 00:06 Carbon Dioxide 24 mmol/L (22-29) 01/05/24 00:06 Anion Gap 16.0 (5-19) 01/05/24 00:06 BUN 11 mg/dL (6-20) 01/05/24 00:06 Creatinine 0.9 mg/dL (0.7-1.2) 01/05/24 00:06 GFR Calculation 94.4 mL/min (90-130) 01/05/24 00:06 Glucose 98 mg/dL (65-115) 01/05/24 00:06 Calculated Osmolality 289 mOsm/kg (285-295) 01/05/24 00:06 Calcium 9.1 mg/dL (8.5-10.5) 01/05/24 00:06 Troponin T Baseline 9 ng/L (0-15) 01/05/24 00:06 All radiology interpretation(s) finalized by discharge Discharge Plan Discharge Patient Disposition: Home Clinical Impression: Gastritis Condition: Stable Prescriptions: No Action fluoxetine 20 mg tablet 20 mg PO DAILY Qty: 60 0RF pantoprazole 40 mg tablet,delayed release (DR/EC) 40 mg PO BID 30 Days Qty: 60 0RF sucralfate 100 mg/mL suspension 1 g PO BID 28 Days Qty: 560 0RF Discharge Orders: Discharge ED (Routine); Ordered 01/05/24 Ordered By: Charles Landon Referrals: Jim Butt MD [Primary Care Provider] - 4-7 days Patient Instructions: Gastritis (ED), Opioid Safety, Pain Management Activity Restrictions/Additional Instructions: Continue your medications. See your doctor next week. Return for worsening problems. Coding Level of Care Code ED Lining Cementer for Linn Rai
== END 2024-01-05 01:26 | disposition home or self-care (01) ==
PROVIDERS: Emergency Provider Emergency Medicine; PCP Family Medicine
DX: K29.70 Gastritis, unspecified, without bleeding (principal); Z72.0 Tobacco use
CPT/HCPCS: 36415; 71045; 80048; 84484; 85025; 93005

== ENCOUNTER → 2024-04-03 11:45 | Outpatient (BNVA) | payer MEDICAID, SELFPAY | PROVIDERS: PCP Family Medicine; Visit Provider Family Medicine | DX: E66.01 Morbid (severe) obesity due to excess calories (principal); Z68.43 Body mass index [BMI] 50.0-59.9, adult | CPT/HCPCS: 80048; 83036 ==

== ENCOUNTER 2024-06-06 18:20 | Emergency (ER) | payer MEDICAID, SELFPAY ==
[2024-06-06 18:25] VITALS: BP 152/106; PULSE 77; RESP 15; TEMP 36.4; O2SAT 97
--- NOTE | 2024-06-06 18:36 | CTR_ITS ---
PROCEDURE INFORMATION: Exam: CT Head Without Contrast Exam date and time: 06/06/2024 6:41 PM Age: 38 years old Clinical indication: Pain; Numbness / parasthesia; Bilateral; Headache not specified; Additional info: Possible stroke TECHNIQUE: Imaging protocol: Computed tomography of the head without contrast. Axial, coronal and sagittal reformatted images were created and reviewed. Radiation optimization: All CT scans at this facility use at least one of these dose optimization techniques: automated exposure control; mA and/or kV adjustment per patient size (includes targeted exams where dose is matched to clinical indication); or iterative reconstruction. COMPARISON: CR XR cervical spine 4-5V [id number] 12/10/2023 8:47 AM RADIATION DOSE METRICS: Total DLP (mGy-cm): 1481.08 FINDINGS: Brain: No CT evidence of acute intracranial hemorrhage or acute territorial infarction. No significant mass effect or midline shift. Basal cisterns patent. Cerebral ventricles: Normal in size and configuration. Paranasal sinuses: Minimal ethmoid mucosal thickening. No fluid levels. Mastoid air cells: Grossly unremarkable. Bones: Unremarkable. No acute fracture. Soft tissues: Grossly unremarkable. CT/CT head wo con* [id number] IMPRESSION: 1. No CT evidence of acute intracranial pathology. 2. Additional findings, as above.
[2024-06-06 18:42] LABS: Glucose Point of Care 83 mg/dL (70-110)
--- NOTE | 2024-06-06 18:55 | ED_ITS ---
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 He says this started about 3 hours ago with some lights in his right eye. Pain behind his right eye. Then headache on the right side. He then developed some right-sided facial numbness. Also has severe photophobia and some nausea and vomiting. Related Data Previous Rx's Medication Instructions Recorded acetaminophen 650 mg 650 mg PO Q12H PRN pain #60 tabs 02/28/24 tablet,extended release (Tylenol Arthritis Pain) fluoxetine 20 mg tablet 20 mg PO DAILY #90 tabs 02/28/24 liraglutide 0.6 mg/0.1 mL (18 mg/3 See Rx Instructions SUBCUT 02/28/24 mL) subcutaneous pen injector .COMPLEX #9 mL (Victoza 3-Jarad) pantoprazole 40 mg tablet,delayed 40 mg PO ONCE #90 tabs 02/28/24 release ondansetron 8 mg disintegrating 8 mg PO Q6H #14 tabs 06/06/24 tablet Allergies Allergy/AdvReac Type Severity Reaction Status Date / Time No Known Allergies Allergy Verified 04/10/24 16:49 Review of Systems 2 Narrative: Constitutional symptoms: Negative except as documented in HPI. Skin symptoms: Negative except as documented in HPI. Eye symptoms: Negative except as documented in HPI. ENMT symptoms: Negative except as documented in HPI. Respiratory symptoms: Negative except as documented in HPI. Cardiovascular symptoms: Negative except as documented in HPI. Gastrointestinal symptoms: Negative except as documented in HPI. Genitourinary symptoms: Negative except as documented in HPI. Musculoskeletal symptoms: Negative except as documented in HPI. Neurologic symptoms: Negative except as documented in HPI. Psychiatric symptoms: Negative except as documented in HPI. Endocrine symptoms: Negative except as documented in HPI. PFSH ED 2 PFSH: Medical History Alcohol use disorder Cannabis use disorder Morbid obesity with BMI of 50.0-59.9, adult Neck Pain Degenerative arthritis of knee, bilateral Family History Mother COPD (chronic obstructive pulmonary disease) Tumor Social History Smoking and tobacco/nicotine status: former use of tobacco/nicotine Quit status (tobacco/nicotine): has quit using Former quit date comment: 20PY quit 15yrs ago Alcohol intake: current Alcohol intake frequency: 3 or more drinks per day Substance/Drug Use: current Other substance/drug use details: dab wax Adopted: No service: No Current occupational exposures/hazards: No Physical Exam 2 Narrative: EXAM NARRATIVE: General: Alert, no acute distress. Skin: Warm, dry. Head: Normocephalic, atraumatic. Neck: Supple, trachea midline. Eye: Extraocular movements are intact. Ears, nose, mouth and throat: mucosa moist. Cardiovascular: Regular, Normal peripheral perfusion. Respiratory: Lungs are clear to auscultation, respirations are non-labored, breath sounds are equal, Symmetrical chest wall expansion. Gastrointestinal: Soft, Nontender, Non distended Musculoskeletal: Normal ROM, no deformity. Neurological: Alert and oriented, No focal neurological deficit observed. Psychiatric: Cooperative, appropriate mood & affect. Course 2 Vital Signs: Vital signs: Vital Signs Temperature 97.6 F 06/06/24 18:25 Pulse Rate 77 06/06/24 18:25 Respiratory Rate 15 06/06/24 18:25 Blood Pressure 152/106 06/06/24 18:25 Pulse Oximetry 97 06/06/24 18:25 Oxygen Delivery Me thod Room Air 06/06/24 18:25 MDM - Neuro Symptoms/Deficit Medical Decision Making Medical decision making: Differential diagnosis for patient with focal neurologic deficit(s) includes but not limited to and based on the above HPI, review of systems and physical exam: ischemic stroke, hemorrhagic stroke and embolic stroke secondary to atrial fibrillation), TIA, Crawford's palsey, metabolic encephalopathy with previous stroke. Orders placed to evaluate differential diagnosis based on the above differential, HPI and physical exam Consultation: I spoke with Dr. Dickinson who is on-call for neurology. Given that the patient has a history of migraines, had an aura, photophobia, nausea and vomiting and now some neurosymptoms this seems more like an atypical migraine rather than a stroke. She recommended Depacon and patient improved fairly rapidly. CT head: No acute intracranial process. no intracranial hemorrhage, no evidence of infarct. no evidence of acute fracture.This was reviewed and interpreted by myself the ER physician. Lab Review: Laboratory results were reviewed and interpreted by myself the emergency room physician. No leukocytosis. No anemia. No renal failure. I reviewed the patient's medical record. Reexamination: Patient is stable. No increased work of breathing. No altered mental status. No focal motor deficits. Vomiting is improved Assessment and plan: Atypical migraine Nausea and vomiting ?Depacon and Zofran in the emergency room. Symptoms have improved - Discharged home - Discussed plan with patient. Answered any questions. - Evaluation and treatment of this problem were appropriate in the emergency setting. Lab Data 06/06/24 19:13 06/06/24 19:[address] 06/06/24 18:[address]: 1[address] evidence of acute intracranial pathology. 2. Additional findings, as above. Laboratory Results WBC 9.67 10^3/uL (3.29-11.43) 06/06/24 19:13 RBC 4.75 10^6/uL (3.85-5.65) 06/06/24 19:13 Hgb 14.30 g/dL (11.27-16.99) 06/06/24 19:13 Hct 43.1 % (37-53) 06/06/24 19:13 MCV 90.7 fl (82-101) 06/06/24 19:13 MCH 30.1 pg (27-33) 06/06/24 19:13 MCHC 33.2 g/dL (30-55) 06/06/24 19:13 RDW 12.5 % (12.1-15.1) 06/06/24 19:13 Plt Count 236 10^3/cmm (157-399) 06/06/24 19:13 MPV 9.8 fL (7.4-10.4) 06/06/24 19:13 Neut % (Auto) 67.6 % 06/06/24 19:13 Lymph % (Auto) 24.8 % 06/06/24 19:13 [place] % (Auto) 5.7 % 06/06/24 19:13 Eos % (Auto) 1.1 % 06/06/24 19:13 Baso % (Auto) 0.4 % 06/06/24 19:13 Neut # (Auto) 6.53 10^3/uL (1.8-7.7) 06/06/24 19:13 Lymph # (Auto) 2.4 10^3/uL (0.8-4.8) 06/06/24 19:13 [place] # (Auto) 0.6 10^3/uL (0.2-0.9) 06/06/24 19:13 Eos # (Auto) 0.1 10^3/uL (0.0-0.8) 06/06/24 19:13 Baso # (Auto) 0.0 10^3/uL (0.0-0.1) 06/06/24 19:13 Nucleated RBC % (auto) 0 % 06/06/24 19:13 Nucleated RBCs # 0.0 /100WBC 06/06/24 19:13 PT 12.40 SECONDS (12.1-14.9) 06/06/24 19:13 INR 0.90 (0.8-1.2) 06/06/24 19:13 APTT 43.7 SECONDS (23.9-36.7) H 06/06/24 19:13 Sodium 139 mmol/L (136-145) 06/06/24 19:13 Potassium 3.5 mmol/L (3.5-5.1) 06/06/24 19:13 Chloride 101 mmol/L (98-107) 06/06/24 19:13 Carbon Dioxide 28 mmol/L (22-29) 06/06/24 19:13 Anion Gap 13.5 (5-19) 06/06/24 19:13 BUN 13 mg/dL (6-20) 06/06/24 19:13 Creatinine 1.0 mg/dL (0.7-1.2) 06/06/24 19:13 GFR Calculation 83.6 mL/min (90-130) L 06/06/24 19:13 Glucose 88 mg/dL (65-115) 06/06/24 19:13 POC Glucose 83 mg/dL (70-110) 06/06/24 18:38 Calculated Osmolality 288 mOsm/kg (285-295) 06/06/24 19:13 Lactic Acid 0.9 mmol/L (0.5-2.2) 06/06/24 19:13 Calcium 9.2 mg/dL (8.5-10.5) 06/06/24 19:13 Total Bilirubin 0.4 mg/dL (0.15-1.2) 06/06/24 19:13 AST 64 U/L (0-40) H 06/06/24 19:13 ALT 30 U/L (0-41) 06/06/24 19:13 Alkaline Phosphatase 81 U/L (40-130) 06/06/24 19:13 Total Protein 7.0 g/dL (6.6-8.7) 06/06/24 19:13 Albumin 4.0 g/dL (3.5-5.2) 06/06/24 19:13 Globulin 3.0 g/dL (1.3-4.6) 06/06/24 19:13 All radiology interpretation(s) finalized by discharge Discharge Plan Discharge Patient Disposition: Home Clinical Impression: Atypical migraine Condition: Stable Prescriptions: New ondansetron 8 mg tablet,disintegrating 8 mg PO Q6H Qty: 14 0RF Rx Instructions: Take 1/2-1 tab every 6 hours as needed for nausea and vomiting No Action pantoprazole 40 mg tablet,delayed release (DR/EC) 40 mg PO ONCE Qty: 90 1RF fluoxetine 20 mg tablet 20 mg PO DAILY Qty: 90 1RF acetaminophen [Tylenol Arthritis Pain] 650 mg tablet extended release 650 mg PO Q12H PRN (Reason: pain) Qty: 60 1RF liraglutide [Victoza 3-Jarad] 0.6 mg/0.1 mL (18 mg/3 mL) pen injector See Rx Instructions SUBCUT .COMPLEX Qty: 9 2RF Rx Instructions: inject 0.6mg subcutaneously once daily x 7 days; then 1.2mg daily, not to exceed 1.8mg/day SUBCUT Discharge Orders: Discharge ED (Routine); Ordered 06/06/24 Ordered By: Griselda Quiroga Referrals: Jim Butt MD [Primary Care Provider] - Discharge Diet: Advance as tolerated Discharge Activity: Increase activity as tolerated Patient Instructions: Migraine Headache (ED), Opioid Safety, Pain Management Activity Restrictions/Additional Instructions: Thank you for choosing [facility] for your healthcare needs today. Please realize this is an emergency room and that we are providing you with a medical screening exam and this may not be complete and all inclusive of all the testing and or work up that you may need to determine your ailment or severity of your illness. You have been screened and evaluated and felt safe for discharge. Health conditions do change or evolve sometimes and as such it is important that you follow up with your Primary Doctor to be re checked, 3-5 days is a general good time frame for follow up. You are always welcome to return to the ED for re assessment if your symptoms are worsening or you have new concerns Coding Level of Care Code ED Real Estate Rental Agent for Linn Rai
[2024-06-06 19:18] LABS: Basophils % 0.4 %; Eosinophils # 0.1 10^3/uL (0.0-0.8); Eosinophils % 1.1 %; Hematocrit 43.1 % (37-53); Lymphocytes # 2.4 10^3/uL (0.8-4.8); Lymphocytes % 24.8 %; Mean Corpuscular HGB Conc 33.2 g/dL (30-55); Mean Corpuscular Hemoglobin 30.1 pg (27-33); Mean Corpuscular Volume 90.7 fl (82-101); Mean Platelet Volume 9.8 fL (7.4-10.4); Monocytes # 0.6 10^3/uL (0.2-0.9); Monocytes % 5.7 %; Neutrophils # 6.53 10^3/uL (1.8-7.7); Neutrophils % 67.6 %; Nucleated Red Blood Cells % 0 %; Platelet Count 236 10^3/cmm (157-399); Red Blood Count 4.75 10^6/uL (3.85-5.65); Red Cell Distribution Width 12.5 % (12.1-15.1); White Blood Count 9.67 10^3/uL (3.29-11.43)
[2024-06-06] MEDS: ondansetron 2 mg/ML SDV 2 mL 8 MG IVP (19:27)
[2024-06-06] MEDS: valproic acid inj 500 MG in sodium chloride 0.9% 50 ML 200 MG IV (19:27)
[2024-06-06] MEDS: ketorolac 30 mg/mL INJ IVP (19:27)
[2024-06-06 19:37] LABS: Lactic Sepsis W/Reflex 0.9 mmol/L (0.5-2.2)
[2024-06-06 19:38] LABS: Alanine Aminotransferase 30 U/L (0-41); Alkaline Phosphatase 81 U/L (40-130); Anion Gap 13.5 (5-19); Aspartate Amino Transferase 64 U/L (0-40); Blood Urea Nitrogen 13 mg/dL (6-20); Calcium 9.2 mg/dL (8.5-10.5); Carbon Dioxide 28 mmol/L (22-29); Chloride 101 mmol/L (98-107); Creatinine Clr Calc Pharmacy 160.9073; Glomerular Filtration Rate 83.6 mL/min (90-130); Glucose 88 mg/dL (65-115); Osmolality Calculated 288 mOsm/kg (285-295); Potassium 3.5 mmol/L (3.5-5.1); Sodium 139 mmol/L (136-145); Total Bilirubin 0.4 mg/dL (0.15-1.2)
[2024-06-06 19:41] LABS: Partial Thromboplastin Time 43.7 SECONDS (23.9-36.7)
--- NOTE | 2024-06-06 19:53 | PC.NURSE ---
to room to assess pt. pt resting comfortably with eyes closed. respirations even and non labored.
[2024-06-06 20:22] VITALS: BP 143/73; PULSE 68; O2SAT 99
== END 2024-06-06 20:23 | disposition home or self-care (01) ==
PROVIDERS: Emergency Provider Emergency Medicine; PCP Family Medicine
DX: G43.809 Other migraine, not intractable, without status migrainosus (principal); Z87.891 Personal history of nicotine dependence
CPT/HCPCS: 36415; 36416; 70450; 80053; 82962; 83605; 85025; 85610; 85730; 96374; 96375; 99285; J1885; J2405; J3490

== ENCOUNTER 2024-08-24 16:29 | Emergency (ER) | payer MEDICAID, SELFPAY ==
[2024-08-24 16:36] VITALS: BP 119/87; PULSE 85; RESP 18; TEMP 36.9; O2SAT 96
[2024-08-24 17:26] LABS: Basophils % 0.4 %; Eosinophils # 0.1 10^3/uL (0.0-0.8); Eosinophils % 0.6 %; Hematocrit 44.5 % (37-53); Lymphocytes # 1.2 10^3/uL (0.8-4.8); Lymphocytes % 14.3 %; Mean Corpuscular HGB Conc 34.4 g/dL (30-55); Mean Corpuscular Hemoglobin 30.1 pg (27-33); Mean Corpuscular Volume 87.6 fl (82-101); Mean Platelet Volume 9.8 fL (7.4-10.4); Monocytes # 0.7 10^3/uL (0.2-0.9); Monocytes % 7.9 %; Neutrophils # 6.45 10^3/uL (1.8-7.7); Neutrophils % 76.4 %; Nucleated Red Blood Cells % 0 %; Platelet Count 226 10^3/cmm (157-399); Red Blood Count 5.08 10^6/uL (3.85-5.65); Red Cell Distribution Width 12.1 % (12.1-15.1); White Blood Count 8.44 10^3/uL (3.29-11.43)
[2024-08-24 17:48] LABS: Alanine Aminotransferase 23 U/L (0-41); Albumin Level 4.4 g/dL (3.5-5.2); Alkaline Phosphatase 111 U/L (40-130); Anion Gap 19.2 (5-19); Aspartate Amino Transferase 52 U/L (0-40); Blood Urea Nitrogen 13 mg/dL (6-20); Calcium 9.5 mg/dL (8.5-10.5); Carbon Dioxide 24 mmol/L (22-29); Chloride 98 mmol/L (98-107); Creatinine Clr Calc Pharmacy 191.8453; Globulin 3.3 g/dL (1.3-4.6); Glomerular Filtration Rate 107.6 mL/min (90-130); Glucose 96 mg/dL (65-115); Lipase 32 U/L (13-60); Osmolality Calculated 286 mOsm/kg (285-295); Potassium 3.2 mmol/L (3.5-5.1); Sodium 138 mmol/L (136-145); Total Bilirubin 0.6 mg/dL (0.15-1.2); Total Protein 7.7 g/dL (6.6-8.7)
[2024-08-24 17:49] LABS: Alcohol Level < 10 mg/dL (0-10)
--- NOTE | 2024-08-24 18:01 | ED_ITS ---
HPI - Abdominal Pain 2 General: Chief Complaint: Abdominal Pain Stated Complaint: abd pain w/ n&v Time Seen by Provider: 08/24/24 17:43 Source: patient Limitations: no limitations History of Present Illness: 39-year-old male who states he has been having abdominal pain along with nausea vomiting diarrhea has been going on for 2 to 3 days states he has had a history of IBS in the past. He denies any fevers. He denies any worse improving factors has had some cramping pain denies any severe pain. Associated Symptoms: Reports diarrhea, nausea and vomiting; Denies chills, dysuria and fever(s) Related Data Previous Rx's ?Medication ?Instructions ?Recorded acetaminophen 650 mg 650 mg PO Q12H PRN pain #60 tabs 02/28/24 tablet,extended release (Tylenol Arthritis Pain) fluoxetine 20 mg tablet 20 mg PO DAILY #90 tabs 02/12 01/05 pantoprazole 40 mg tablet,delayed 40 mg PO ONCE #90 ta bs 02/28/24 release tirzepatide (weight loss) 2.5 2.5 mg (0.5 mL) SUBCUT . qweekly #2 07/03/24 mg/0.5 mL subcutaneous pen mL injector (Zepbound) gabapentin 100 mg capsule 100 mg PO BID #60 caps 08/13 dicyclomine 20 mg tablet 20 mg PO BID PRN abdominal p ain 08/24/24 #20 tabs ondansetron 4 mg disintegrating 4 mg PO Q6H PRN nausea and 08/24/24 tablet vomiting #14 tabs Allergies Allergy/AdvReac Type Severity Reaction Status Date / Time No Known Allergies Allergy Verified 08/24/24 16:45 Review of Systems 2 Const: Denies: fever(s), chills, body aches or change in appetite ENMT: Denies: throat pain or dental pain Card: Denies: chest pain Resp: Denies: dyspnea GI: Reports: abdominal pain, nausea, vomiting and diarrhea : Denies: dysuria Musc: Denies: neck pain or back pain Skin/Breast: Denies: rash Neuro: Denies: headache(s) PFSH ED 2 PFSH: Medical History Alcohol use disorder Cannabis use disorder Morbid obesity with BMI of 50.0-59.9, adult Neck Pain Degenerative arthritis of knee, bilateral Family History Mother COPD (chronic obstructive pulmonary disease) Tumor Social History Smoking and tobacco/nicotine status: former use of tobacco/nicotine Quit status (tobacco/nicotine): has quit using Former quit date comment: 20PY quit 15yrs ago Alcohol intake: current Alcohol intake frequency: 3 or more drinks per day Substance/Drug Use: current Other substance/drug use details: dab wax Adopted: No service: No Current occupational exposures/hazards: No Physical Exam 2 Const: COMMON NORMALS: no acute distress, patient oriented x3 and healthy appearing HENMT: COMMON NORMALS: normocephalic and atraumatic HEAD & SCALP: n ormocephalic and atraumatic Eye: COMMON NORMALS: conjunctivae normal CONJUNCTIVA: Yes conjunctivae normal Neck/C-Spine: COMMON NORMALS: full ROM and supple Chest: COMMONS NORMALS: normal inspection of the chest Resp: COMMON NORMALS: normal respiratory effort, No retractions, No use of accessory muscles and clear to auscultation bilaterally AUSCULTATION: clear to auscultation bilaterally Cardio: COMMON NORMALS: regular rate, regular rhythm and No murmurs present (Cardio) RATE: regular rate RHYTHM: regular rhythm GI: COMMON NORMALS: Normal to inspection, nondistended, normoactive bowel sounds present, Soft to palpation, non-tender and no masses PALPATION: Yes Soft to palpation Extremity: COMMON NORMALS: normal to inspection and full ROM Neuro: COMMON NORMALS: patient oriented x3, moves all extremities and no focal motor deficits Psych: COMMON NORMALS: mental status grossly normal, Normal thought process present and cooperative THOUGHT PROCESS: Normal thought process present Skin: COMMON NORMALS: no rashes or lesions noted and no wounds GENERAL SKIN EXAM: no rashes or lesions noted Course 2 Vital Signs: Vital signs: Vital Signs Temperature 98.4 F 08/24/24 16:36 Pulse Rate 85 08/24/24 19:00 Respiratory Rate 16 08/24/24 19:00 Blood Pressure 169/102 08/24/24 18:15 Pulse Oximetry 95 08/24/24 19:00 Oxygen Delivery Me thod Room Air 08/24/24 19:00 MDM - Abdominal Pain Medical Decision Making Patient presents here with abdominal pain vomiting diarrhea he has been well- appearing here exam is benign we will prescribe him Bentyl along with nausea medicine he is to return if worsening. Medical Records I reviewed the patient's medical records. Lab Data I reviewed the patient's lab results. 08/24/24 16:58 08/24/24 16:58 Labs/Radiology: Laboratory Results WBC 8.44 10^3/uL (3.29-11.43) 08/24/24 16:58 RBC 5.08 10^6/uL (3.85-5.65) 08/24/24 16:58 Hgb 15.30 g/dL (11.27-16.99) 08/24/24 16:58 Hct 44.5 % (37-53) 08/24/24 16:58 MCV 87.6 fl (82-101) 08/24/24 16:58 MCH 30.1 pg (27-33) 08/24/24 16:58 MCHC 34.4 g/dL (30-55) 08/24/24 16:58 RDW 12.1 % (12.1-15.1) 08/24/24 16:58 Plt Count 226 10^3/cmm (157-399) 08/24/24 16:58 MPV 9.8 fL (7.4-10.4) 08/24/24 16:58 Neut % (Auto) 76.4 % 08/24/24 16:58 Lymph % (Auto) 14.3 % 08/24/24 16:58 [place] % (Auto) 7.9 % 08/24/24 16:58 Eos % (Auto) 0.6 % 08/24/24 16:58 Baso % (Auto) 0.4 % 08/24/24 16:58 Neut # (Auto) 6.45 10^3/uL (1.8-7.7) 08/24/24 16:58 Lymph # (Auto) 1.2 10^3/uL (0.8-4.8) 08/24/24 16:58 [place] # (Auto) 0.7 10^3/uL (0.2-0.9) 08/24/24 16:58 Eos # (Auto) 0.1 10^3/uL (0.0-0.8) 08/24/24 16:58 Baso # (Auto) 0.0 10^3/uL (0.0-0.1) 08/24/24 16:58 Nucleated RBC % (auto) 0 % 08/24/24 16:58 Nucleated RBCs # 0.0 /100WBC 08/24/24 16:58 Sodium 138 mmol/L (136-145) 08/24/24 16:58 Potassium 3.2 mmol/L (3.5-5.1) L 08/24/24 16:58 Chloride 98 mmol/L (98-107) 08/24/24 16:58 Carbon Dioxide 24 mmol/L (22-29) 08/24/24 16:58 Anion Gap 19.2 (5-19) H 08/24/24 16:58 BUN 13 mg/dL (6-20) 08/24/24 16:58 Creatinine 0.8 mg/dL (0.7-1.2) 08/24/24 16:58 GFR Calculation 107.6 mL/min (90-130) 08/24/24 16:58 Glucose 96 mg/dL (65-115) 08/24/24 16:58 Calculated Osmolality 286 mOsm/kg (285-295) 08/24/24 16:58 Calcium 9.5 mg/dL (8.5-10.5) 08/24/24 16:58 Total Bilirubin 0.6 mg/dL (0.15-1.2) 08/24/24 16:58 AST 52 U/L (0-40) H 08/24/24 16:58 ALT 23 U/L (0-41) 08/24/24 16:58 Alkaline Phosphatase 111 U/L (40-130) 08/24/24 16:58 Total Protein 7.7 g/dL (6.6-8.7) 08/24/24 16:58 Albumin 4.4 g/dL (3.5-5.2) 08/24/24 16:58 Globulin 3.3 g/dL (1.3-4.6) 08/24/24 16:58 Lipase 32 U/L (13-60) 08/24/24 16:58 Ethyl Alcohol < 10 mg/dL (0-10) 08/24/24 16:58 No radiology studies performed this visit Discharge Plan Discharge Patient Disposition: Home Clinical Impression: Abdominal pain, Nausea vomiting and diarrhea Condition: Stable Prescriptions: New ondansetron 4 mg tablet,disintegrating 4 mg PO Q6H PRN (Reason: nausea and vomiting) Qty: 14 0RF dicyclomine 20 mg tablet 20 mg PO BID PRN (Reason: abdominal pain) Qty: 20 0RF No Action pantoprazole 40 mg tablet,delayed release (DR/EC) 40 mg PO ONCE Qty: 90 1RF fluoxetine 20 mg tablet 20 mg PO DAILY Qty: 90 1RF acetaminophen [Tylenol Arthritis Pain] 650 mg tablet extended release 650 mg PO Q12H PRN (Reason: pain) Qty: 60 1RF Zepbound 2.5 mg/0.5 mL pen injector 2.5 mg SUBCUT .qweekly Qty: 2 1RF gabapentin 100 mg capsule 100 mg PO BID Qty: 60 1RF Discharge Orders: Discharge ED (Routine); Ordered 08/24/24 Ordered By: Helen Tyson Referrals: Jim Butt MD [Primary Care Provider] - 4-7 days Discharge Diet: Advance as tolerated Discharge Activity: Resume usual activity Patient Instructions: Acute Nausea and Vomiting (ED), Abdominal Pain (ED) Print Language: Colombian Coding Level of Care Code ED Gas Appliance Servicer Helper for Linn Rai
[2024-08-24 18:15] VITALS: BP 169/102; PULSE 78; RESP 16; O2SAT 96
[2024-08-24] MEDS: diphenhydrAMINE 50 mg/mL SDV 1mL IVP (18:26)
[2024-08-24] MEDS: metoclopramide 5 mg/mL SDV 2 mL 10 MG IVP (18:26)
[2024-08-24] MEDS: diphenoxylate/atropine Tablet 2 TAB PO (18:26)
[2024-08-24] MEDS: sodium chloride 0.9% 1,000 ML 999 ML IV (18:27)
[2024-08-24 19:00] VITALS: PULSE 85; RESP 16; O2SAT 95
[2024-08-24 19:36] VITALS: BP 138/79; PULSE 79; O2SAT 96
[2024-08-24] MEDS: ondansetron 2 mg/ML SDV 2 mL 4 MG IM (19:40)
== END 2024-08-24 19:42 | disposition home or self-care (01) ==
PROVIDERS: Emergency Provider Emergency Medicine; PCP Family Medicine
DX: R10.9 Unspecified abdominal pain (principal); R11.2 Nausea with vomiting, unspecified; R19.7 Diarrhea, unspecified; Z87.891 Personal history of nicotine dependence
CPT/HCPCS: 36415; 80053; 80307; 83690; 85025; 96372; 96374; 96375; 99284; J1200; J2405; J2765; J7030

== ENCOUNTER 2024-11-01 11:53 | Emergency (ER) | payer MEDICAID, SELFPAY ==
[2024-11-01 12:02] VITALS: BP 142/87; PULSE 63; TEMP 36.8; O2SAT 97; BMI 50.2
--- NOTE | 2024-11-01 13:40 | ECG_ITS ---
[facility] 2024[facility]01 Pat Name: Graeme Sadler Department: Room: Gender: Male Environmental Monitoring Specialist: : 1985 Requested By: Jim Butt Order Number: [id number] Porter MD: Marianne Santiago M.D. Measurements Intervals [place] Rate: 63 P: 49 OK: 190 QRS: 41 QRSD: 110 T: 43 QT: 393 QTc: 405 Interpretive Statements SINUS RHYTHM WITH SINUS ARRHYTHMIA INTERPRETATION BASED ON A DEFAULT AGE OF 40 YEARS Compared to ECG 01/04/2024 23:01:35 Intraventricular conduction delay no longer present T-wave abnormality no longer present Electronically Signed On 11-02-2024 18:52:28 CDT by Marianne Santiago M.D. [email or web address]
== END 2024-11-01 13:05 | disposition left against medical advice (07) ==
PROVIDERS: Emergency Provider Family Medicine; PCP Family Medicine
DX: I49.8 Other specified cardiac arrhythmias (principal)
CPT/HCPCS: 93005

== ENCOUNTER → 2025-06-01 08:08 | Outpatient (BNVA) | payer MEDICAID, SELFPAY | PROVIDERS: PCP Family Medicine; Visit Provider Physician Assistant | DX: M17.0 Bilateral primary osteoarthritis of knee (principal); Z71.89 Other specified counseling | CPT/HCPCS: 73560; 73565 ==